=== PATIENT | male | born 1935 | race Caucasian/White ===

== ENCOUNTER 2017-04-13 15:29 | Emergency (ER) | payer MEDICARE ==
[2017-04-13 15:38] VITALS: BP 190/83; PULSE 85; RESP 18; TEMP 97.8
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
== END 2017-04-13 16:40 | disposition home or self-care (01) ==
LOC: EC 15:29
DX: S46.912A Strain of unspecified muscle, fascia and tendon at shoulder and upper arm level, left arm, initial encounter (principal); I10 Essential (primary) hypertension; E78.5 Hyperlipidemia, unspecified; Z96.612 Presence of left artificial shoulder joint; Z87.891 Personal history of nicotine dependence; Z79.899 Other long term (current) drug therapy; X50.1XXA Overexertion from prolonged static or awkward postures, initial encounter; Y93.89 Activity, other specified
CPT/HCPCS: 99283

== ENCOUNTER → 2017-10-07 | Outpatient (CLI) | payer MEDICARE ==
[2017-10-07 09:58] LABS: Basophils % (A) 1 %; CH 30.2; CHCM 31.9; Eosinophils # (A) 0.2 k/uL (0-0.7); Eosinophils % (A) 3 %; HCT 44.4 % (39.0-53.0); HDW 2.22; HGB 14.3 gm/dL (13.0-17.5); Luc # (Auto) 0.13; Luc % (Auto) 2; Lymphocytes # (A) 1.8 k/uL (1.0-4.8); Lymphocytes % (A) 24 %; MCH 30.7 pg (25.0-35.0); MCHC 32.2 g/dL (31.0-37.0); MCV 95.1 fL (80.0-100.0); Mean Platelet Volume 7.6; Monocytes # (A) 0.4 k/uL (0-1.0); Monocytes % (A) 6 %; Neutrophils # (A) 4.9 k/uL (1.3-7.7); Neutrophils % (A) 66 %; RBC 4.67 m/uL (4.30-5.90); WBC 7.4 k/uL (3.8-10.6); WBC (Perox) 7.34
[2017-10-07 10:14] LABS: Anion Gap 11 mmol/L; Blood Urea Nitrogen 27 mg/dL (9-20); Carbon Dioxide 28 mmol/L (22-30); Chloride 101 mmol/L (98-107); Glucose 109 mg/dL (74-99); Non-African American GFR(MDRD) 58 (>60 ml/min/1.73 sqM); Potassium 4.6 mmol/L (3.5-5.1); Sodium 140 mmol/L (137-145)
--- NOTE | 2017-10-07 17:40 | US ---
EXAMINATION TYPE: US kidneys/renal and bladder DATE OF EXAM: 10/07/2017 COMPARISON: NONE CLINICAL HISTORY: 81-year-old male N18.2 CHRONIC KIDNEY DISEASE. CKD stage II TECHNIQUE: Multiple sonographic images of the kidneys and bladder are obtained. FINDINGS: Right Kidney: 9.4 x 5.3 x 5.5 cm without hydronephrosis. Left Kidney: 10.8 x 6.0 x 4.7 cm without hydronephrosis. There is bilateral renal cortical thinning noted. No gross abnormality of the urine distended bladder though there is posterior impression on to the bl adder base from an enlarged prostate gland which measures 5.2 x 4.1 x 5.6cm. Neither ureteral jet is seen in the course of the exam. IMPRESSION: 1. Chronic medical renal disease. 2. No hydronephrosis. 3. Prostatomegaly with impression onto the posterior bladder base. Correlate for BPH.
[2017-10-08 13:43] LABS: Free Kappa Lt Chain Qnt, Serum 3.19 mg/dL (0.33-1.94)
[2017-10-08 14:19] LABS: C-ANCA <1:20 Titer (<1:20); P-ANCA <1:20 Titer (<1:20)
== END | disposition home or self-care (01) ==
LOC: RADUSWWP 09:14
PROVIDERS: ATTEND Internal Medicine
DX: N40.0 Benign prostatic hyperplasia without lower urinary tract symptoms (principal); N18.2 Chronic kidney disease, stage 2 (mild)
CPT/HCPCS: 36415; 76770; 80048; 82570; 83883; 84156; 84165; 84166; 85025; 86255

== ENCOUNTER → 2017-11-05 | Outpatient (CLI) | payer MEDICARE ==
--- NOTE | 2017-11-05 12:12 | XR ---
EXAMINATION TYPE: XR bone survey complete DATE OF EXAM: 11/05/2017 COMPARISON: NONE HISTORY: Monoclonal gammopathy Bony calvarium : 2 views of the bony calvarium demonstrate. No definitive focal lytic lesion. Spine: Two views of the cervical, thoracic and lumbar spines are submitted. There is marked disc spa ce narrowing C3-C4 and C5-C6 levels, ossific fusion C5-C6 level is felt present. There is moderate an terior spurring C4-C5 level. Frontal view shows uncovertebral facet arthropathy bilaterally. There is moderate to severe right-sided carotid bulb calcification. Consider carotid ultrasound follow-up. Thoracic spine shows fairly moderate to severe anterior and lateral spurring in the mid to lower thor acic spine. Some multilevel disc space narrowing is present. Lumbar spine shows moderate to severe multilevel spurring and disc space narrowing most prominent low er lumbar levels. Overlying vascular calcification is seen. No definitive lytic lesions are identifie d PELVIS: Single view of the pelvis demonstrates. Mild joint space loss in both hips is present. Jin ency from overlying bowel gas is noted making evaluation suboptimal. No definitive focal lytic lesion s are seen. UPPER EXTREMITIES: Two views of the upper extremities. Metallic hardware from bilateral shoulder reve rse arthroplasty is identified. No definitive lytic lesion. LOWER EXTREMITIES: 2 views of the lower extremities. No definitive focal lytic lesions CXR: There is left basilar linear scarring or atelectasis. No suspicious lytic or expansile rib lesio n identified. There is atherosclerotic and ectatic aorta noted IMPRESSION: No definitive suspicious focal lytic lesion seen. Consider carotid ultrasound follow-up.
== END | disposition home or self-care (01) ==
LOC: RADXRMAIN 11:05
PROVIDERS: ATTEND Internal Medicine Hematology & Oncology
DX: M12.9 Arthropathy, unspecified (principal); D47.2 Monoclonal gammopathy; I10 Essential (primary) hypertension; N42.9 Disorder of prostate, unspecified
CPT/HCPCS: 77075

== ENCOUNTER → 2018-03-28 | Outpatient (CLI) | payer MEDICARE ==
--- NOTE | 2018-03-28 15:58 | XR ---
EXAMINATION TYPE: XR KUB DATE OF EXAM: 03/28/2018 CLINICAL DATA: 82-year-old male with back pain, PHH COMPARISON: None FINDINGS: Lung bases are clear. No evidence for free intraperitoneal air. No dilated small bowel or air-fluid levels. Scattered air and stool seen throughout the colon extendi ng distally into the rectum. Mild to moderate stool burden. No suspicious calcifications identified. Phleboliths in the right hemipelvis. Degenerative changes lower lumbar spine. IMPRESSION: No evidence of bowel obstruction or free intraperitoneal air.
== END | disposition home or self-care (01) ==
LOC: RADXRMAIN 12:45
PROVIDERS: ATTEND Internal Medicine
DX: M54.9 Dorsalgia, unspecified (principal)
CPT/HCPCS: 74018

== ENCOUNTER → 2018-06-23 | Outpatient (CLI) | payer MEDICARE ==
--- NOTE | 2018-06-23 16:56 | XR ---
EXAMINATION TYPE: XR lumbar spine 2 or 3V DATE OF EXAM: 06/23/2018 COMPARISON: NONE HISTORY: Low back pain TECHNIQUE: 3 views FINDINGS: The lumbar vertebra have normal alignment. Posterior elements are intact. There is degenera tive disc space narrowing throughout the lumbar spine with spur formation. There is no compression fr acture. Abdominal aorta is atheromatous. IMPRESSION: Spondylotic changes. No fracture. Atherosclerotic vascular disease.
== END | disposition home or self-care (01) ==
LOC: RADXRMAIN 16:25
PROVIDERS: ATTEND Internal Medicine
DX: M47.816 Spondylosis without myelopathy or radiculopathy, lumbar region (principal)
CPT/HCPCS: 72100

== ENCOUNTER → 2019-02-20 | Outpatient (CLI) | payer MEDICARE ==
[2019-02-20 09:06] LABS: Basophils % (A) 0 %; Eosinophils # (A) 0.3 k/uL (0-0.7); Eosinophils % (A) 4 %; HCT 42.6 % (39.0-53.0); HGB 13.8 gm/dL (13.0-17.5); Lymphocytes % (A) 27 %; MCH 30.8 pg (25.0-35.0); MCHC 32.5 g/dL (31.0-37.0); MCV 94.7 fL (80.0-100.0); Mean Platelet Volume 7.1; Monocytes # (A) 0.4 k/uL (0-1.0); Monocytes % (A) 5 %; Neutrophils # (A) 4.5 k/uL (1.3-7.7); Neutrophils % (A) 61 %; Platelet Count 237 k/uL (150-450); RDW 14.2 % (11.5-15.5); WBC 7.3 k/uL (3.8-10.6)
[2019-02-20 17:11] LABS: Albumin 4.4 g/dL (3.80-4.90); Albumin/Globulin Ratio 1.52 (1.60-3.17); Anion Gap 7.9 mmol/L (4.00-12.00); Calcium 9.6 mg/dL (8.7-10.3); Carbon Dioxide 25.1 mmol/L (21.6-31.8); Globulin 2.9 g/dL (1.6-3.3); Magnesium 1.9 mg/dL (1.5-2.4); Potassium 5.3 mmol/L (3.5-5.5); Total Bilirubin 0.6 mg/dL (0.3-1.2); Total Protein 7.3 g/dL (6.2-8.2)
== END | disposition home or self-care (01) ==
LOC: LABWHC1 08:24
PROVIDERS: ATTEND Internal Medicine
DX: I10 Essential (primary) hypertension (principal)
CPT/HCPCS: 36415; 80053; 83735; 85025

== ENCOUNTER → 2019-05-18 | Outpatient (CLI) | payer MEDICARE ==
--- NOTE | 2019-05-18 13:56 | XR ---
EXAMINATION TYPE: XR lumbar spine 2 or 3V DATE OF EXAM: 05/18/2019 CLINICAL HISTORY: Chronic low back pain TECHNIQUE: Frontal and lateral images of the lumbar spine are obtained. COMPARISON: 06/23/2018 FINDINGS: There are 5 lumbar type vertebral bodies identified. The lumbar spine shows satisfactory alignment without evidence of acute fracture or dislocation. Vertebral body heights are maintained. M ultilevel degenerative disc disease is seen as intervertebral disc space narrowing, endplate sclerosi s, facet arthropathy, and bridging anterior osteophytes. This is most pronounced of the lower lumbar spine and has increased in severity slightly in comparison to the prior of 2017 as facet arthropathy appears more pronounced. Extensive atherosclerosis of the abdominal aorta is noted. Mild diffuse osse ous demineralization is seen. IMPRESSION: 1. No acute fracture or malalignment of the lumbar spine. 2. 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
== END | disposition home or self-care (01) ==
LOC: RADXRMAIN 10:57
PROVIDERS: ATTEND Internal Medicine
DX: M51.36 Other intervertebral disc degeneration, lumbar region (principal)
CPT/HCPCS: 72100

== ENCOUNTER 2019-06-25 05:54 | Inpatient (IN) | payer MEDICARE ==
[2019-06-25] MEDS ORDERED: SODIUM CHLORIDE 0.9% 500 ML 500 ML IV STA (06:13)
[2019-06-25] MEDS ORDERED: ASPIRIN 81 MG PO STA (06:13)
--- NOTE | 2019-06-25 06:20 | ED ---
General Adult HPI - General Source: patient, family, RN notes reviewed, old records reviewed Mode of arrival: ambulatory Limitations: no limitations <Devyn Morley - Last Filed: 06/25/19 07:25> <Violetta Zhao - Last Filed: 06/25/19 07:54> - General Chief complaint: Chest Pain Stated complaint: Chest Pain Time Seen by Provider: 06/25/19 06:03 - History of Present Illness Initial comments: 83-year-old male patient past medical history significant for hypertension, hyperlipidemia presents ED chief complaint of chest pain with associated shortness of breath. Patient reports that these episodes menses Malachi chest pain shortness of breath are short in duration lasting less than a minute. Patient reports approximately 3 episodes of chest pain per day for the last 4 days. Describes the pain as a dull pain in his left parasternal region. Patient denies any previous cardiac history. At time of evaluation patient is currently not experiencing any chest pain. Systemic: Pt denies fatigue, fever/chills, rash. Pt denies weakness, night sweats, weight loss. Neuro: Pt denies headache, visual disturbances, syncope or pre-syncope. HEENT: Pt denies ocular discharge or irritation, otalgia, rhinorrhea, pharyngitis or notable lymphadenopathy. Cardiopulmonary: Pt denies heart palpitations, dyspnea on exertion. Abdominal/GI: Pt denies abdominal pain, n/v/d. : Pt denies dysuria, burning w/ urination, frequency/urgency. Denies new onset urinary or bowel incontinence. MSK: Pt denies myalgia, loss of strength or function in extremities. Neuro: Pt denies new onset weakness, paresthesias. (Devyn Morley) - Related Data Home Medications Medication Instructions Recorded Confirmed Ascorbic Acid [Vitamin C] 500 mg PO DAILY 04/13/17 06/25/19 Cholecalciferol (Vitamin D3) 2,000 unit PO DAILY 04/13/17 06/25/19 [Vitamin D3] Glucosamine/Chondr [place]roy A Sod [Osteo 1 tab PO HS 04/13/17 06/25/19 Bi-Flex Caplet] Multivitamins, Thera [Multivitamin 1 tab PO DAILY 04/13/17 06/25/19 (formulary)] [place]-3S/Dha/Epa/Fish Oil [Fish 1 cap PO HS 04/13/17 06/25/19 Oil 1,200 mg Softgel] Pravastatin Sodium [Pravachol] 40 mg PO HS 04/13/17 06/25/19 Finasteride [Proscar] 5 mg PO DAILY 09/22/18 06/25/19 Ubidecarenone [Co Q-10] 100 mg PO HS 09/22/18 06/25/19 Lisinopril-Hctz 20-12.5 mg 1 tab PO DAILY 06/25/19 06/25/19 [Zestoretic 20-12.5] Allergies Allergy/AdvReac Type Severity Reaction Status Date / Time No Known Allergies Allergy Verified 06/25/19 07:26 Review of Systems ROS Other: All systems not noted in ROS Statement are negative. <Devyn Morley - Last Filed: 06/25/19 07:25> ROS Other: All systems not noted in ROS Statement are negative. <Violetta Zhao - Last Filed: 06/25/19 07:54> ROS Statement: Those systems with pertinent positive or pertinent negative responses have been documented in the HPI. Past Medical History Past Medical History: Hyperlipidemia, Hypertension, Osteoarthritis (OA) History of Any Multi-Drug Resistant Organisms: None Reported Past Surgical History: Appendectomy, Orthopedic Surgery, Tonsillectomy Additional Past Surgical History / Comment(s): left and right shoulder surgery Past Psychological History: No Psychological Hx Reported Smoking Status: Former smoker Past Alcohol Use History: Occasional Past Drug Use History: None Reported <Devyn Morley - Last Filed: 06/25/19 07:25> General Exam Limitations: no limitations <Devyn Morley - Last Filed: 06/25/19 07:25> - General Exam Comments Initial Comments: Constitutional: NAD, AOX3, Pt has pleasant affect. HEENT: NC/AT, trachea midline, neck supple, no lymphadenopathy. Posterior pharyn x non erythematous, without exudates. External ears appear normal, without discharge. Mucous membranes moist. Eyes PERRLA, EOM intact. There is no scleral icterus. No pallor noted. Cardiopulmonary: RRR, no murmurs, rubs or gallops, no JVD noted. Lungs CTAB in anterior and posterior vital. No peripheral edema. Abdominal exam: Abdomen soft and non-distended. Abdomen non-tender to palpation in all 4 quadrants. Bowel sounds active in LLQ. No hepatosplenomegaly. No ecchymosis Neuro: CN II-XII grossly intact. No nuchal rigidity. No raccon eyes, no villegas sign, no hemotympanum. No cervical spinal tenderness. MSK: No posterior calf tenderness bilaterally, homans sign negative bilaterally. Posterior tibialis and radial pulse +2 bilaterally. Sensation intact in upper and lower extremities. Full active ROM in upper and lower extremities, 5/5 stregnth. (Devyn Morley) Course Vital Signs 06/25/19 06/25/19 06/25/19 05:56 06:15 07:00 Temperature 97.6 F Pulse Rate 63 59 L 68 Respiratory 18 18 18 Rate Blood Pressure 146/81 145/87 156/91 O2 Sat by Pulse 100 98 98 Oximetry 06/25/19 06/25/19 07:26 07:30 Temperature Pulse Rate 74 67 Respiratory 18 18 Rate Blood Pressure 160/80 151/83 O2 Sat by Pulse 100 99 Oximetry Medical Decision Making - Lab Data Result diagrams: 06/25/19 06:17 06/25/19 06:17 - EKG Data -: EKG Interpreted by Tx <Devyn Morley - Last Filed: 06/25/19 07:25> - Lab Data Result diagrams: 06/25/19 06:17 06/25/19 06:17 <Violetta Zhao - Last Filed: 06/25/19 07:54> - Medical Decision Making 83-year-old male patient no prior cardiac history presents ED chief complaint of chest pain for the last 2 days. Upon arrival ED patient is chest pain free. Initial EKG nonischemic, laboratory investigations significant for troponin of 1.5, also d-dimer elevation. Cardiology Dr. Treadwell was contacted by attending physician Dr. Zhao at 0700. repeat EKG acute [place]. Patient initiated on low intensity heparin. lift slab operator was activiated by attending physician Dr. Zhao. (Devyn Morley) % Is on evaluated the patient. This is an 83-year-old male with history of hypertension hyperlipidemia stuttering chest pain for 2 days presenting to the emergency department this morning upon recommendation of his for evaluation of his chest pain. Upon evaluation the patient reports pains only a 2-3 in intensity. He has not taken anything for this. Initial EKG had some mild ST elevation in II, III, and F via however patient was chest pain-free there was some baseline artifact, labs were obtained patient was given aspirin due to not having active significant chest pain nitro was held. Troponin resulted elevated at 1.5 and cardiology was notified, repeat EKG was obtained. Repeat EKG no longer has the artifact and there is definitive and elevation to [address] depressions in aVL and leads V2 V3. This was discussed with cardiology given Romeo recommended activation of the Wall Insulation Sprayer. (Violetta Zhao) - Lab Data Lab Results 06/25/19 06/25/19 06/25/19 Range/Units 06:17 06:17 06:17 WBC 8.6 (3.8-10.6) k/uL RBC 4.35 (4.30-5.90) m/uL Hgb 13.4 (13.0-17.5) gm/dL Hct 41.2 (39.0-53.0) % MCV 94.6 (80.0-100.0) fL MCH 30.9 (25.0-35.0) pg MCHC 32.6 (31.0-37.0) g/dL RDW 14.9 (11.5-15.5) % Plt Count 260 (150-450) k/uL Neutrophils % 59 % Lymphocytes % 31 % Monocytes % 5 % Eosinophils % 3 % Basophils % 0 % Neutrophils # 5.0 (1.3-7.7) k/uL Lymphocytes # 2.6 (1.0-4.8) k/uL Monocytes # 0.5 (0-1.0) k/uL Eosinophils # 0.2 (0-0.7) k/uL Basophils # 0.0 (0-0.2) k/uL PT 9.4 (9.0-12.0) sec INR 0.9 (<1.2) APTT 23.4 (22.0-30.0) sec D-Dimer 1.51 H (<0.60) mg/L FEU Sodium 141 (137-145) mmol/L Potassium 4.9 (3.5-5.1) mmol/L Chloride 104 (98-107) mmol/L Carbon Dioxide 27 (22-30) mmol/L Anion Gap 10 mmol/L BUN 30 H (9-20) mg/dL Creatinine 1.29 H (0.66-1.25) mg/dL Est GFR (CKD-EPI)AfAm 59 (>60 ml/min/1.73 sqM) Est GFR (CKD-EPI)NonAf 51 (>60 ml/min/1.73 sqM) Glucose 96 (74-99) mg/dL Calcium 9.6 (8.4-10.2) mg/dL Magnesium 2.0 (1.6-2.3) mg/dL Total Bilirubin 0.6 (0.2-1.3) mg/dL AST 43 (17-59) U/L ALT 21 (21-72) U/L Alkaline Phosphatase 45 (38-126) U/L Troponin I (0.000-0.034) ng/mL NT-Pro-B Natriuret Pep pg/mL Total Protein 7.8 (6.3-8.2) g/dL Albumin 4.2 (3.5-5.0) g/dL 06/25/19 06/25/19 Range/Units 06:17 06:17 WBC (3.8-10.6) k/uL RBC (4.30-5.90) m/uL Hgb (13.0-17.5) gm/dL Hct (39.0-53.0) % MCV (80.0-100.0) fL MCH (25.0-35.0) pg MCHC (31.0-37.0) g/dL RDW (11.5-15.5) % Plt Count (150-450) k/uL Neutrophils % % Lymphocytes % % Monocytes % % Eosinophils % % Basophils % % Neutrophils # (1.3-7.7) k/uL Lymphocytes # (1.0-4.8) k/uL Monocytes # (0-1.0) k/uL Eosinophils # (0-0.7) k/uL Basophils # (0-0.2) k/uL PT (9.0-12.0) sec INR (<1.2) APTT (22.0-30.0) sec D-Dimer (<0.60) mg/L FEU Sodium (137-145) mmol/L Potassium (3.5-5.1) mmol/L Chloride (98-107) mmol/L Carbon Dioxide (22-30) mmol/L Anion Gap mmol/L BUN (9-20) mg/dL Creatinine (0.66-1.25) mg/dL Est GFR (CKD-EPI)AfAm (>60 ml/min/1.73 sqM) Est GFR (CKD-EPI)NonAf (>60 ml/min/1.73 sqM) Glucose (74-99) mg/dL Calcium (8.4-10.2) mg/dL Magnesium (1.6-2.3) mg/dL Total Bilirubin (0.2-1.3) mg/dL AST (17-59) U/L ALT (21-72) U/L Alkaline Phosphatase (38-126) U/L Troponin I 1.530 H* (0.000-0.034) ng/mL NT-Pro-B Natriuret Pep 1140 pg/mL Total Protein (6.3-8.2) g/dL Albumin (3.5-5.0) g/dL - EKG Data EKG Comments: 1) Ventricular rate 60, painful to 74, QRS 14, QT/QTC 390/390, sinus rhythm with first-degree AV block, inferior posterior infarct, age undetermined, abnormal EKG. 2) Ventricular rate 57, RI interval 284, QRS 14, QT/QTC 392/31. Sinus bradycardia with first-degree AV block, lateral infarct possibly acute, inferior infarct prosecute, acute STEMI. (Devyn Morley) Critical Care Time Critical Care Time: Yes Total Critical Care Time: 30 <Violetta Zhao - Last Filed: 06/25/19 07:54> Disposition Is patient prescribed a controlled substance at d/c from ED?: No <Devyn Morley - Last Filed: 06/25/19 07:25> <Violetta Zhao - Last Filed: 06/25/19 07:54> Clinical Impression: ST elevation myocardial infarction (STEMI) Disposition: ADMITTED IP TO THIS HOSP Condition: Critical
[2019-06-25 06:28] LABS: Basophils % (A) 0 %; Eosinophils # (A) 0.2 k/uL (0-0.7); Eosinophils % (A) 3 %; HCT 41.2 % (39.0-53.0); HGB 13.4 gm/dL (13.0-17.5); Lymphocytes # (A) 2.6 k/uL (1.0-4.8); Lymphocytes % (A) 31 %; MCH 30.9 pg (25.0-35.0); MCHC 32.6 g/dL (31.0-37.0); MCV 94.6 fL (80.0-100.0); Monocytes # (A) 0.5 k/uL (0-1.0); Monocytes % (A) 5 %; Neutrophils % (A) 59 %; Platelet Count 260 k/uL (150-450); RBC 4.35 m/uL (4.30-5.90); RDW 14.9 % (11.5-15.5); WBC 8.6 k/uL (3.8-10.6)
[2019-06-25 06:39] LABS: Albumin 4.2 g/dL (3.5-5.0); Calcium 9.6 mg/dL (8.4-10.2); Potassium 4.9 mmol/L (3.5-5.1); Total Bilirubin 0.6 mg/dL (0.2-1.3); Total Protein 7.8 g/dL (6.3-8.2)
[2019-06-25 06:43] LABS: INR 0.9 (<1.2); Partial Thromboplastin Time 23.4 sec (22.0-30.0); Prothrombin Time 9.4 sec (9.0-12.0)
[2019-06-25 06:45] LABS: D-Dimer 1.51 mg/L FEU (<0.60)
[2019-06-25] MEDS ORDERED: HEPARIN SODIUM,PORCINE 5,000 UNIT/ML 1 ML VIAL IV ONE (06:54)
[2019-06-25] MEDS ORDERED: HEPARIN SODIUM,PORCINE 5,000 UNIT/ML 1 ML VIAL IV PRN (06:54)
[2019-06-25] MEDS: HEPARIN SOD,PORK IN 0.45% NACL 25,000 UNIT in 0.45% NACL 1 250ML.BAG IV SCH (07:06)
[2019-06-25] MEDS ORDERED: ATORVASTATIN 80 MG TAB PO STA (07:16)
--- NOTE | 2019-06-25 07:16 | XR ---
EXAMINATION TYPE: XR chest 2V DATE OF EXAM: 06/25/2019 HISTORY: Chest Pain. REFERENCE: Previous study dated 09/22/2018. FINDINGS: Bilateral shoulder arthroplasties are in place. Heart size upper limits of normal. There is scarring in the left lung base. The lungs are otherwise c lear. Pleural spaces are clear. IMPRESSION: 1. BORDERLINE CARDIOMEGALY. 2. SCARRING VERSUS ATELECTASIS, LEFT LUNG BASE.
[2019-06-25] MEDS ORDERED: MIDAZOLAM PF (FBP) 2 MG/2 ML VIAL IV ONE (07:50)
[2019-06-25] MEDS ORDERED: LIDOCAINE 1% INJ 10MG/ML (20 ML MDV) ONE (07:54)
[2019-06-25] MEDS ORDERED: LIDOCAINE 1% INJ 10MG/ML (20 ML MDV) SQ ONE (07:56)
[2019-06-25] MEDS ORDERED: NITROGLYCERIN OINT 1 INCH/GM PACKET TOPICAL SCH (08:00)
[2019-06-25] MEDS ORDERED: IV FLUID CONTINUATION 1,000 ML IV ONE (08:01)
[2019-06-25] MEDS ORDERED: niCARdipine 25 MG/10 ML VIAL ONE (08:04)
[2019-06-25] MEDS ORDERED: BIVALIRUDIN BOLUS 250 MG/50 ML IV ONE (08:06)
[2019-06-25] MEDS ORDERED: CLOPIDOGREL 75 MG TAB PO ONE (08:06)
[2019-06-25] MEDS ORDERED: BIVALIRUDIN 250 MG in SODIUM CHLORIDE 0.9% 50 ML IV ONE ×2 (08:07→08:58)
[2019-06-25] MEDS ORDERED: CLOPIDOGREL 75 MG TAB ONE (08:08)
[2019-06-25] MEDS ORDERED: IOPAMIDOL-370 100ML BTL INJ ONE ×2 (08:43→08:49)
[2019-06-25] MEDS: NITROGLYCERIN 1000MCG/10ML SYRINGE INTRACORON ONE ×3 (08:47→09:07)
[2019-06-25] MEDS ORDERED: METOPROLOL SUCCINATE (ER) 25 MG TAB.ER.24H PO SCH (09:00)
--- NOTE | 2019-06-25 09:14 | P.CRDCN ---
History of Present Illness History of present illness: This is Dr. Seals dictating a consult on this patient The patient was interviewed and examined by me IMPRESSION / ASSESSMENT: Chest discomfort consistent with ACS with ST elevation in the inferior leads Symptoms began almost a week back, recurrent. Patient had repeated episodes but this morning at 5:15 AM the pain became intense and constant Q waves in the inferior leads Posterior extension of inferior wall IL Hypertension Acute myocardial infarction ST elevation, delayed presentation, troponin 1.5 upon admission NT proBNP 1140 PLAN: Statins aspirin heparin and urgent transfer to Detailed Discussion with the Patient and His Line Discussed with Dr. Faiban HURTADO For the last week or so the patient has been having repeated episodes of chest discomfort the last for a few minutes and then go away. He's had it at rest as well as during exertion. No other associated symptoms He mentioned it to several people who advised him to go to the hospital but he kept ignoring this This morning at 5:15 AM he had severe discomfort in the left pectoral area that went down his left shoulder and arm and was quite intense Hence he came to the hospital First ECG showed ST elevation in the inferior leads with ST depression in V1 and V2 He was pain-free by the second ECG showed even more prominent ST elevations History of hypertension NO KNOWN DRUG ALLERGIES No iodine ALLERGY Nondiabetic Takes Pravachol 40 mg by mouth daily ROS: No fever chills or rigors, no cough, phlegm or expectoration, no nausea, vomiting or diarrhea, no hematuria, dysuria, no musculoskeletal complaints, no strokes or seizures, no skin lesions. EXAMINATION: Blood pressure 145/87 mmHg pulse rate in the 50s afebrile Breath sounds are clear no rhonchi no crackles Normal heart sounds normal S1 normal S2 no murmurs or gallops or rub Abdomen soft nontender Extremities warm no edema REVIEW OF LABS, ECG & MEDICAL DATA Hemoglobin 13.4 Normal electrolytes BUN 30 creatinine 1.3 Troponin elevated 1.5 upon admission Past Medical History Past Medical History: Hyperlipidemia, Hypertension, Osteoarthritis (OA) History of Any Multi-Drug Resistant Organisms: None Reported Past Surgical History: Appendectomy, Orthopedic Surgery, Tonsillectomy Additional Past Surgical History / Comment(s): left and right shoulder surgery Past Psychological History: No Psychological Hx Reported Smoking Status: Former smoker Past Alcohol Use History: Occasional Past Drug Use History: None Reported Medications and Allergies Home Medications Medication Instructions Recorded Confirmed Type Ascorbic Acid [Vitamin C] 500 mg PO DAILY 04/13/17 06/25/19 History Cholecalciferol (Vitamin D3) 2,000 unit PO DAILY 04/13/17 06/25/19 History [Vitamin D3] Glucosamine/Chondr Monroy A Sod [Osteo 1 tab PO HS 04/13/17 06/25/19 History Bi-Flex Caplet] Multivitamins, Thera [Multivitamin 1 tab PO DAILY 04/13/17 06/25/19 History (formulary)] [place]-3S/Dha/Epa/Fish Oil [Fish 1 cap PO HS 04/13/17 06/25/19 History Oil 1,200 mg Softgel] Pravastatin Sodium [Pravachol] 40 mg PO HS 04/13/17 06/25/19 History Finasteride [Proscar] 5 mg PO DAILY 09/22/18 06/25/19 History Ubidecarenone [Co Q-10] 100 mg PO HS 09/22/18 06/25/19 History Lisinopril-Hctz 20-12.5 mg 1 tab PO DAILY 06/25/19 06/25/19 History [Zestoretic 20-12.5] Allergies Allergy/AdvReac Type Severity Reaction Status Date / Time No Known Allergies Allergy Verified 06/25/19 07:26 Physical Exam Vitals: Vital Signs Temp Pulse Resp BP Pulse Ox 06/25/19 08:02 97.9 F 06/25/19 07:30 67 18 151/83 99 06/25/19 07:26 74 18 160/80 100 06/25/19 07:00 68 18 156/91 98 06/25/19 06:15 59 L 18 145/87 98 06/25/19 05:56 97.6 F 63 18 146/81 100 Intake and Output 06/24/19 06/25/19 06/25/19 22:59 06:59 14:59 Intake Total 238.5 Balance 238.5 Intake: IV 238.5 Other: Weight 81.647 kg Results 06/25/19 06:17 06/25/19 06:17 Cardiac Enzymes 06/25/19 06/25/19 Range/Units 06:17 06:17 AST 43 (17-59) U/L Troponin I 1.530 H* (0.000-0.034) ng/mL Coagulation 08/18/19 Range/Units 06:17 PT 9.4 (9.0-12.0) sec APTT 23.4 (22.0-30.0) sec CBC 06/25/19 Range/Units 06:17 WBC 8.6 (3.8-10.6) k/uL RBC 4.35 (4.30-5.90) m/uL Hgb 13.4 (13.0-17.5) gm/dL Hct 41.2 (39.0-53.0) % Plt Count 260 (150-450) k/uL Comprehensive Metabolic Panel 06/25/19 Range/Units 06:17 Sodium 141 (137-145) mmol/L Potassium 4.9 (3.5-5.1) mmol/L Chloride 104 (98-107) mmol/L Carbon Dioxide 27 (22-30) mmol/L BUN 30 H (9-20) mg/dL Creatinine 1.29 H (0.66-1.25) mg/dL Glucose 96 (74-99) mg/dL Calcium 9.6 (8.4-10.2) mg/dL AST 43 (17-59) U/L ALT 21 (21-72) U/L Alkaline Phosphatase 45 (38-126) U/L Total Protein 7.8 (6.3-8.2) g/dL Albumin 4.2 (3.5-5.0) g/dL Current Medications Generic Name Dose Route Start Last Admin Trade Name Freq PRN Reason Stop Dose Admin Aspirin 325 mg 06/26/19 09:00 Aspirin PO DAILY [facility] Atorvastatin Calcium 40 mg 06/26/19 09:00 Lipitor PO DAILY [facility] Heparin Sodium (Porcine) 0 unit 06/25/19 06:54 Heparin IV PER PROTOCOL PRN Low PTT Protocol Heparin Sodium/Sodium Chloride 250 mls @ 9.798 mls/hr 06/25/19 07:00 06/25/19 07:06 25,000 unit/ Sodium Chloride IV 12 units/kg/hr .Q24H GIO 9.798 mls/hr Administration Protocol 12 UNITS/KG/HR Metoprolol Succinate 25 mg 06/25/19 09:00 Toprol Xl PO DAILY [facility] Nitroglycerin 1 inch 06/25/19 08:00 Nitro-Bid Oint TOPICAL Q6HR GIO Intake and Output 06/24/19 06/25/19 06/25/19 22:59 06:59 14:59 Intake Total 238.5 Balance 238.5 Intake: IV 238.5 Other: Weight 81.647 kg 06/25/19 06:17 06/25/19 06:17
[2019-06-25] MEDS ORDERED: RX INFO: IV CONTRAST WAS GIVEN 1 EACH MISC MISCELLANE PRN (09:31)
[2019-06-25] MEDS ORDERED: ATROPINE SULFATE 0.1 MG/ML 10ML SYRINGE IV PRN (09:31)
[2019-06-25] MEDS ORDERED: ZOLPIDEM 5 MG TAB PO PRN (09:31)
[2019-06-25] MEDS ORDERED: NITROGLYCERIN SL TABS 0.4 MG TAB SUBLINGUAL PRN (09:31)
[2019-06-25] MEDS ORDERED: MAG HYDROX/AL HYDROX/SIMETH 30 ML CUP PO PRN (09:31)
[2019-06-25 09:40] LABS: Glucose,Whole Blood 95 mg/dL (75-99)
[2019-06-25] MEDS ORDERED: SODIUM CHLORIDE 0.9% 1,000 ML IV SCH (09:45)
--- NOTE | 2019-06-25 10:16 | LTR ---
DATE OF SERVICE: June 25, [address] Asencio: Mr. Barnett presented to the emergency room at [facility] with chest discomfort and was diagnosed with acute inferior ST-elevation myocardial infarction. Dr. Seals seen the patient and recommended proceeding with a heart catheterization emergently. 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 He underwent successful stenting of the mid and proximal right coronary artery with an excellent angiographic results. I want to thank you for allowing us to participate in his care and please do not hesitate to call for question or concerns. Sincerely, MMODL / IJN: [id number] /
--- NOTE | 2019-06-25 10:29 | CC ---
CARDIAC CATHETERIZATION REPORT DATE OF SERVICE: June 25, 2019 PERFORMING PHYSICIAN: Clifford Peralta MD, side seam machine operator. PROCEDURE PERFORMED: 1. Selective right and left coronary angiogram. 2. Aspiration thrombectomy from the right coronary artery. 3. Successful stenting of the mid RCA using 3.5 x 15 mm Xience AMARJIT with an excellent angiographic results and reduction of stenosis from 100% to 0%. 4. Successful stenting of the proximal right coronary artery with excellent angiographic results as well. 5. Left heart catheterization. INDICATION: This is an 83-year-old gentleman with hypertension and dyslipidemia who presented to the emergency room complaining of chest discomfort. He was found to be in acute inferior ST-elevation myocardial infarction. The patient was seen and evaluated by Dr. Seals who recommended proceeding with an emergent heart catheterization. APPROACH: Right common femoral artery. COMPLICATION: None. LEVEL OF SEDATION: Moderate with sedation length of 82 minutes. Door to balloon is 135 minutes. PROCEDURE DESCRIPTION: After obtaining an informed consent, the patient was brought to the cardiac [employer]. The right common femoral artery was cannulated using micropuncture technique. The right common femoral artery using was cannulated using an 18-gauge Cook needle, then I placed a 6-Malagasy sheath. After that I did selective right and left coronary angiogram. Selective right coronary angiogram was performed using JR4 catheter. Selective left coronary angiogram was performed using the JL4 catheter. Left heart catheterization was performed using 6- Malagasy pigtail catheter. After that I did intervene on the right coronary artery. Please see a separate paragraph for that. SELECTIVE CORONARY ANGIOGRAM: 1. The right coronary artery is a large caliber vessel and it is a superdominant vessel. The proximal right coronary artery appeared to have mild disease only. The mid RCA has eccentric, calcified, and 100% lesion. The RCA distally has mild to moderate diffuse disease. Bifurcates into PDA and PLV branches. Both appeared to have mild to moderate diffuse disease only. 2. The left main is angiographically normal. Bifurcates into a nondominant left circumflex and left anterior descending artery. 3. The left circumflex is a medium caliber vessel. It is a nondominant vessel. The left circumflex in the proximal portion gives rise into a large first OM branch which seems to be angiographically normal and the circumflex continued after that as a small-caliber vessel in the AV groove. 4. The LAD: The LAD proximally appeared to have mild disease only. The mid LAD appeared to be angiographically normal. The LAD distally appeared to be normal as well and becomes small to medium caliber vessel. The LAD gives rise into multiple diagonal branches. They all appeared to be angiographically normal. PCI OF THE RIGHT CORONARY ARTERY: Anticoagulation was initiated using Angiomax. Subsequently I did engage the right coronary artery using JR4 guide. The guide was seating very well in the ostial right coronary artery. I did wire the RCA using a run-through wire. The wire was positioned in the PLV branch of the right coronary artery. After that, I did balloon angioplasty using 3.0 x 12 mm balloon. The balloon opened very well in the mid right coronary artery. Subsequently I attempted advancing 3 5 x 15 mm stent but the stent will not cross the junction between the proximal and mid right coronary artery. At that point, I decided to balloon the right coronary artery using 3.5 mm NC balloon. With that, I was unable to advance the stent to the mid right coronary artery. At that point, I decided to double wire the RCA where I placed a lm wire with a whisper wire. In spite of that, I was unable to advance the stent to the mid right coronary artery from the proximal portion where the stent was stuck in the junction between proximal to mid right coronary artery which was an angulated area. At that point, I decided to use a GuideLiner. I pulled the lm wire which was a whisper wire outside the right coronary artery and I attempted advancing GuideLiner to the proximal right coronary artery and in spite of that I was unable to advance the stent to the mid RCA. At that point, I decided to use lm wire, but this time using the Ironman. I advanced the Ironman to the distal right coronary artery where the Ironman was positioned in the PLV branch of the right coronary artery. I attempted advancing the stent again over the Whisper wire, but the stent will not cross and over the Ironman and the stent will not cross again. At that point, I decided to go ahead and balloon the RCA again using 3.5 x 12 mm NC balloon. I advanced a 3.5 x 12 mm NC balloon to the junction between proximal to mid RCA where I did balloon angioplasty and the balloon was inflated under 18 atmospheres for 20 seconds and the lesion was quite compliant and the balloon was opened up very well. Then I did balloon angioplasty to the mid RCA. After that I was able to advance the stent to the mid RCA over the whisper wire. The stent was positioned under fluoroscopy guidance and deployed after I pulled the Ironman out. The stent was deployed under 16 atmospheres for 20 seconds. The following angiogram showed what seems to be possible dissection/thrombus in the proximal to mid right coronary artery. At that point, I decided not to leave that again alone and I decided to cover that with a stent. So I did wire the RCA again using a whisper wire. After that, I did deploy a 3.5 x 15 mm in the proximal RCA with about 1 mm junction between right coronary stent. Then I did balloon the area of overlap between the 2 stents using the 3.5 mm new NC balloon. The following angiogram showed great angiographic results and the procedure was completed without any complication. CONCLUSION: 1. Acute inferior ST-elevation myocardial infarction. 2. 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 3. Successful stenting of both the mid and proximal right coronary artery using 3.5 x 15 mm stents with an excellent angiographic results and reduction of stenosis from 100% to 0%. POSTPROCEDURE MANAGEMENT: 1. Dual anti-platelet therapy. 2. Risk factors modifications. 3. Follow up with the patient. MMODL / IJN: [id number] /
--- NOTE | 2019-06-25 11:26 | P.HPIM ---
History of Present Illness H&P Date: 06/25/19 Chief Complaint: chest pain This is 83 years old male who presented to the emergency department with new onset chest pain. Patient stated for the last 5 days prior to presentation he has been experiencing occasional chest pain located to the left sided of the chest without radiation without nausea vomiting or diaphoresis stated that the pain would happen at rest [id number] in severity without significant radiation and that resolved on its own the patient that this morning developed a worsening in his chest pain where he felt it's more tight to describe that some body sitting in his chest without significant radiation and that decided to come into the emergency department where his troponin was high at 1.5 EKG showed inferior ischemia with the ST elevation MT cardiac catheterization was done momentarily with the 2 stents to the RCA with great results. Patient currently is in the intensive care unit seems to be alert and oriented 4 denying chest pain shortness breath nausea vomiting abdominal pain dizziness lightheadedness or blurry vision. Patient stated that he quit taking aspirin long time ago as he was having chronic kidney disease and his primary stopped at a long time ago stated that he still taking his cholesterol medicine and other medication on regular basis and was seen by his primary care physician few weeks prior to this presentation. Patient the is denying tobacco alcohol or drug abuse and said that he quit cigarettes 40 years ago. Patient is retired from [employer]. Review of Systems All 14 systems reviewed and negative except as above Past Medical History Past Medical History: Hyperlipidemia, Hypertension, Osteoarthritis (OA) Last Myocardial Infarction Date:: 06/25/2019 History of Any Multi-Drug Resistant Organisms: None Reported Past Surgical History: Appendectomy, Orthopedic Surgery, Tonsillectomy Additional Past Surgical History / Comment(s): left and right shoulder surgery Date of Last Stent Placement:: 06/25/2019 Past Psychological History: No Psychological Hx Reported Smoking Status: Former smoker Past Alcohol Use History: Occasional Past Drug Use History: None Reported Medications and Allergies Home Medications Medication Instructions Recorded Confirmed Type Ascorbic Acid [Vitamin C] 500 mg PO DAILY 04/13/17 06/25/19 History Cholecalciferol (Vitamin D3) 2,000 unit PO DAILY 04/13/17 06/25/19 History [Vitamin D3] Glucosamine/Chondr Monroy A Sod [Osteo 1 tab PO HS 04/13/17 06/25/19 History Bi-Flex Caplet] Multivitamins, Thera [Multivitamin 1 tab PO DAILY 04/13/17 06/25/19 History (formulary)] [place]-3S/Dha/Epa/Fish Oil [Fish 1 cap PO HS 04/13/17 06/25/19 History Oil 1,200 mg Softgel] Pravastatin Sodium [Pravachol] 40 mg PO HS 04/13/17 06/25/19 History Finasteride [Proscar] 5 mg PO DAILY 09/22/18 06/25/19 History Ubidecarenone [Co Q-10] 100 mg PO HS 09/22/18 06/25/19 History Lisinopril-Hctz 20-12.5 mg 1 tab PO DAILY 06/25/19 06/25/19 History [Zestoretic 20-12.5] Allergies Allergy/AdvReac Type Severity Reaction Status Date / Time No Known Allergies Allergy Verified 06/25/19 07:26 Physical Exam Vitals: Vital Signs Temp Pulse Resp BP Pulse Ox 06/25/19 10:15 65 23 121/65 96 06/25/19 10:00 98.9 F 64 10 L 116/71 97 06/25/19 09:45 59 L 8 L 116/71 98 06/25/19 09:38 61 7 L 06/25/19 08:02 97.9 F 06/25/19 07:30 67 18 146/88 99 06/25/19 07:26 74 18 160/80 100 06/25/19 07:15 153/124 06/25/19 07:00 68 18 156/91 98 06/25/19 06:15 59 L 18 145/87 98 06/25/19 05:56 97.6 F 63 18 146/81 100 Intake and Output 06/24/19 06/25/19 06/25/19 22:59 06:59 14:59 Intake Total 438.5 Output Total 400 Balance 38.5 Intake: IV 238.5 Intake, IV Titration 200 Amount Bivalirudin 250 mg In 50 Sodium Chloride 0.9% 50 ml @ 0 mls/hr IV .[facility] Rx#:[id number] Sodium Chloride 0.9% 1, 150 000 ml @ 75 mls/hr IV . [id number] [facility] Rx#:[id number] Output: Urine 400 Other: Weight 81.647 kg Gen.: in stated age, no acute distress Heart: Normal S1-S2 Lungs: Clear to auscultation bilaterally Abdomen: Soft, no tenderness, positive bowel sounds in all 4 quadrant no guarding or rebound Skin: No new rash Psych: Alert and oriented 3 Neuro: No focal deficit Results CBC & Chem 7: 06/25/19 06:17 06/25/19 06:17 Labs: Abnormal Lab Results - Last 24 Hours (Table) 06/25/19 06/25/19 06/25/19 Range/Units 06:17 06:17 06:17 D-Dimer 1.51 H (<0.60) mg/L FEU BUN 30 H (9-20) mg/dL Creatinine 1.29 H (0.66-1.25) mg/dL Troponin I 1.530 H* (0.000-0.034) ng/mL Thrombosis Risk Factor Assmnt - Choose All That Apply Any of the Below Risk Factors Present?: Yes Each Factor Represents 1 point: Acute MT Each Risk Factor Represents 2 Points: Patient confined to bed Each Risk Factor Represents 3 Points: Age 75 years or older Other congenital or acquired thrombophilia - If yes, enter type in comment: No Thrombosis Risk Factor Assessment Total Risk Factor Score: 6 Thrombosis Risk Factor Assessment Level: High Risk Assessment and Plan Assessment: 1. ST elevation MT status post cardiac catheterization with 2 drug-eluting stent to the RCA. 2. Chest pain, resolved. 3. Hypertension. 4. Hyperlipidemia. 5. Chronic kidney disease stage III. 6. Benign prostatic hypertrophy. 7. Generalized osteoarthritis. Patient currently on Dual antiplatelets therapy, continue cardioprotective medication, continue close monitoring vital signs and repeat blood work in the morning in the intensive care unit setting, follow-up with cardiology recommendation regarding discharge planning, resume home medication, counseled patient regarding medication adherence specially Plavix and close follow-up with his primary care physician. Discharge planning based on clinical progress
[2019-06-25] MEDS: LISINOPRIL-HCTZ 10-12.5 MG 1 EACH TAB PO SCH (12:16)
--- NOTE | 2019-06-25 14:58 | ECHOF ---
Referral Reason:stemi MEASUREMENTS -------- HEIGHT: 180.3 cm WEIGHT: 81.6 kg BP: IVSd: 1.0 cm (0.6 - 1.1) LVIDd: 4.4 cm (3.9 - 5.3) LVPWd: 1.3 cm (0.6 - 1.1) IVSs: 1.6 cm LVIDs: 1.9 cm LVPWs: 2.0 cm Ao Diam: 3.8 cm (2.0 - 3.7) LA Diam: 3.3 cm (2.7 - 3.8) AV Cusp: 2.3 cm (1.5 - 2.6) EPSS: 1.5 cm MV E Alfonso: 0.79 m/s MV DecT: 196 ms MV A Alfonso: 0.92 m/s MV E/A Ratio: 0.86 RAP: 5.00 mmHg RVSP: 8.92 mmHg MV EF SLOPE: 83.75 mm/s (70 - 150) MV EXCURSION: 14.01 mm (> 18.000) FINDINGS -------- Sinus rhythm. This was a technically difficult study with suboptimal views. The left ventricular size is normal. There is borderline concentric left ventricular hypertrophy. Overall left ventricular systolic function is moderately impaired with, an EF between 35 - 40 %. I nferiorlateral aKINESIS The right ventricle is normal in size. The left atrial size is normal. The right atrial size is normal. The aortic valve is trileaflet and appears structurally normal. The mitral valve is normal. There is trace mitral regurgitation. The tricuspid valve appears structurally normal. Trace tricuspid regurgitation present. Right keturah tricular systolic pressure is normal at < 35 mmHg. There is no pulmonic regurgitation present. 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 There is no pericardial effusion. 5.0mg of Lumason was utilized for enhancement of images CONCLUSIONS -------- 1. Sinus rhythm. 2. This was a technically difficult study with suboptimal views. 3. The left ventricular size is normal. 4. There is borderline concentric left ventricular hypertrophy. 5. Overall left ventricular systolic function is moderately impaired with, an EF between 35 - 40 %. 6. The right ventricle is normal in size. 7. The left atrial size is normal. 8. The right atrial size is normal. 9. 5.0mg of Lumason was utilized for enhancement of images 10. The aortic valve is trileaflet and appears structurally normal. 11. The mitral valve is normal. 12. There is trace mitral regurgitation. 13. The tricuspid valve appears structurally normal. 14. Trace tricuspid regurgitation present. 15. Right ventricular systolic pressure is normal at < 35 mmHg. 16. There is no pulmonic regurgitation present. 17. 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 IVC Not well visulized. 19. There is no pericardial effusion. CAFETERIA ATTENDANT: Dominga Coreas RDCS
[2019-06-26 06:54] LABS: Basophils % (A) 0 %; Eosinophils # (A) 0.1 k/uL (0-0.7); Eosinophils % (A) 2 %; HCT 37.3 % (39.0-53.0); HGB 12.1 gm/dL (13.0-17.5); Lymphocytes # (A) 1.5 k/uL (1.0-4.8); Lymphocytes % (A) 22 %; MCH 31.4 pg (25.0-35.0); MCHC 32.3 g/dL (31.0-37.0); MCV 97.2 fL (80.0-100.0); Mean Platelet Volume 6.9; Monocytes # (A) 0.5 k/uL (0-1.0); Monocytes % (A) 7 %; Neutrophils # (A) 4.5 k/uL (1.3-7.7); Neutrophils % (A) 66 %; Platelet Count 194 k/uL (150-450); RBC 3.84 m/uL (4.30-5.90); WBC 6.8 k/uL (3.8-10.6)
[2019-06-26] MEDS: HEPARIN SOD,PORK IN 0.45% NACL 25,000 UNIT in 0.45% NACL 1 250ML.BAG IV SCH (07:40)
--- NOTE | 2019-06-26 08:03 | PN ---
PROGRESS NOTE Mr. Salter is an 83-year-old male with no prior history of coronary artery disease who presented with an acute inferoposterior myocardial infarction, underwent cardiac catheterization and stenting of the RCA by Dr. Peralta. He is doing well this morning. Feels that he is ready to go home. He is denying any chest pain. No dizziness. No palpitation. He denies any nausea. He continues to be at this time on aspirin once a day, Lipitor 40 mg daily, Plavix 75 mg daily, lisinopril HCT 10-12.5 mg daily and metoprolol succinate 50 mg daily. PHYSICAL EXAMINATION: Blood pressure 120/70 with the heart rate in the 60s. LUNGS: Clear. HEART: Regular rate and rhythm. S1, S2. No S3. No rub. ABDOMEN: Soft, nontender. Positive bowel sounds. No organomegaly. EXTREMITIES: No edema. Right groin hematoma. LAB DATA: Lab data revealed a peak troponin of 94 with a cholesterol 132, LDL of 67. BUN and creatinine of .Hemoglobin of 12.1. IMPRESSION: 1. Status post stenting of the right coronary artery in the setting of myocardial infarction. 2. History of hypertension. 3. History of hyperlipidemia. RECOMMENDATION: We will continue present therapy. Patient had evidence of ischemic cardiomyopathy on his echocardiography. I will increase his activity. If he is stable, he should be able to be transferred to telemetry floor today and depending on his progress, further recommendation will be made. MMODL / IJN: [id number] /
[2019-06-26] MEDS: CLOPIDOGREL 75 MG TAB PO SCH (08:10)
[2019-06-26] MEDS: ATORVASTATIN 40 MG TAB PO SCH (08:10)
[2019-06-26] MEDS: ASPIRIN 81 MG PO SCH (08:10)
[2019-06-26] MEDS: METOPROLOL SUCCINATE (ER) 50 MG TAB.ER.24H PO SCH (08:11)
[2019-06-26] MEDS ORDERED: ASPIRIN 325 MG TAB PO SCH (09:00)
[2019-06-26 09:07] LABS: Calcium 9.1 mg/dL (8.4-10.2); Potassium 4.5 mmol/L (3.5-5.1)
[2019-06-26 10:00] VITALS: BMI 26.9
[2019-06-26 11:26] LABS: Hemoglobin A1C 6.2 % (4.0-6.0)
[2019-06-26] MEDS: LISINOPRIL-HCTZ 10-12.5 MG 1 EACH TAB PO SCH (12:36)
--- NOTE | 2019-06-26 15:58 | P.PN ---
Subjective Progress Note Date: 06/26/19 This is a 3-year-old male patient of Dr. Asencio who presented to the emergency department with new onset chest pain. Patient stated for the last 5 days prior to presentation he has been experiencing occasional chest pain located to the left sided of the chest without radiation without nausea vomiting or diaphoresis stated that the pain would happen at rest [id number] in severity without significant radiation and that resolved on its own the patient that this morning developed a worsening in his chest pain where he felt it's more tight to describe that somebody sitting in his chest without significant radiation and that decided to come into the emergency department where his troponin was high at 1.5 EKG showed inferior ischemia with the ST elevation PR cardiac catheterization was done momentarily with the 2 stents to the RCA with great results. Patient currently is in the intensive care unit seems to be alert and oriented 4 denying chest pain shortness breath nausea vomiting abdominal pain dizziness lightheadedness or blurry vision. Patient stated that he quit taking aspirin long time ago as he was having chronic kidney disease and his primary stopped at a long time ago stated that he still taking his cholesterol medicine and other medication on regular basis and was seen by his primary care physician few weeks prior to this presentation. Patient the is denying tobacco alcohol or drug abuse and said that he quit cigarettes 40 years ago. Patient is retired from [employer]. 06/26: Patient is currently seen in the intensive care unit. Patient is denying any chest pain, dizziness, palpitations. No nausea. He is hemodynamically stable. Blood pressure 121/72, heart rate 64, pulse ox 95% on room air, afebrile. Echocardiogram reveals EF 35-40% with borderline concentric left ventricle hypertrophy, trace mitral regurgitation, trace tricuspid regurgitation. Patient has been transferred to the cardiac stepdown unit. Objective - Vital Signs Vital signs: Vital Signs Temp 97.6 F 06/26/19 04:00 Pulse 64 06/26/19 07:00 Resp 12 06/26/19 07:49 BP 121/72 06/26/19 07:00 Pulse Ox 95 06/26/19 07:00 Intake & Output 06/25/19 06/26/19 06/26/19 18:59 06:59 18:59 Intake Total 2018.5 825 75 Output Total 700 1500 Balance 1318.5 -675 75 Weight 85.2 kg Intake: IV 238.5 Intake, IV Titration 800 825 75 Amount Bivalirudin 250 mg In 50 Sodium Chloride 0.9% 50 ml @ 0 mls/hr [id number] Sodium Chloride 0.9% 1, 750 825 75 000 ml @ 75 mls/hr IV . [id number] [facility] Rx#:[id number] Oral 980 Output: Urine 700 1500 - Exam Review Of Systems: Constitutional: No fever, no chills, no night sweats. No weight change. No weakness, fatigue or lethargy. No daytime sleepiness. EENT: No headache. No blurred vision or double vision, no loss of vision. No loss of Hearing, no ringing in the ears, no dizziness. No nasal drainage or con gestion. No epistaxis. No sore throat. Lungs: No shortness of breath, cough, no sputum production. No wheezing. Cardiovascular: No chest pain, no lower extremity edema. No palpitations. No paroxysmal nocturnal dyspnea. No orthopnea. No lightheadedness or dizziness. No syncopal episodes. Abdominal: No abdominal pain. No nausea, vomiting. No diarrhea. No constipation. No bloody or tarry stools.. No loss of appetite. Genitourinary: No dysuria, increased frequency, urgency. No urinary retention. Musculoskeletal: No myalgias. No muscle weakness, no gait dysfunction, no frequent falls. No back pain. No neck pain. Integumentary: No wounds, no lesions. No rash or pruritus. No unusual bruising. No change in hair or nails. Neurologic: No aphasia. No facial droop. No change in mentation. No head injury. No headache. No paralysis. No paresthesia. Psychiatric: No depression. No anxiety. No mood swings. Endocrine: No abnormal blood sugars. No weight change. No excessive sweating or thirst. No cold intolerance. Gen: This is an 83-year-old male. Patient is resting in a recliner and appears to be comfortable and in no acute distress. HEENT: Head is atraumatic, normocephalic. Pupils equal, round. Sclerae is anicteric. NECK: Supple. No JVD. No lymphadenopathy. No thyromegaly. LUNGS: Clear to auscultation. No wheezes or rhonchi. No intercostal retraction s. HEART: Regular rate and rhythm. No murmur. ABDOMEN: Soft. Bowel sounds are present. No masses. No tenderness. EXTREMITIES: No pedal edema. No calf tenderness. Dorsalis pedis +2 bilaterally. NEUROLOGICAL: Patient is awake, alert and oriented x3. Cranial nerves 2 through 12 are grossly intact. - Labs CBC & Chem 7: 06/26/19 05:57 06/26/19 05:57 Labs: Abnormal Lab Results - Last 24 Hours (Table) 06/25/19 06/25/19 06/25/19 Range/Units 12:43 12:43 17:39 RBC (4.30-5.90) m/uL Hgb (13.0-17.5) gm/dL Hct (39.0-53.0) % APTT 47.2 H (22.0-30.0) sec Troponin I 59.600 H* 94.300 H* (0.000-0.034) ng/mL 06/26/19 Range/Units 05:57 RBC 3.84 L (4.30-5.90) m/uL Hgb 12.1 L (13.0-17.5) gm/dL Hct 37.3 L (39.0-53.0) % APTT (22.0-30.0) sec Troponin I (0.000-0.034) ng/mL Assessment and Plan Plan: 1. Acute inferior wall ST elevated myocardial infarction status post stenting of the mid RCA and proximal RCA, aspiration thrombectomy from the right RCA. Continue aspirin 81 mg daily, Lipitor 40 mg daily, Plavix 75 mg daily, Toprol-XL 50 mg daily. 2. Hypertension. Continue Zestoretic daily and Toprol-XL. 3. Hyperlipidemia. Atorvastatin. 4. Chronic kidney disease stage III. 5. Benign prostatic hypertrophy. 6. Generalized osteoarthritis. Discharge plan: Return home in the next 24-48 hours. Impression and plan of care have been directed as dictated by the signing physician. Hanna Campa nurse practitioner acting as scribe for signing physician.
[2019-06-27 06:12] LABS: Basophils % (A) 0 %; Eosinophils # (A) 0.2 k/uL (0-0.7); Eosinophils % (A) 2 %; HCT 39.5 % (39.0-53.0); HGB 12.6 gm/dL (13.0-17.5); Lymphocytes # (A) 1.6 k/uL (1.0-4.8); Lymphocytes % (A) 21 %; MCH 30.6 pg (25.0-35.0); MCHC 31.8 g/dL (31.0-37.0); MCV 96.1 fL (80.0-100.0); Mean Platelet Volume 7.1; Monocytes # (A) 0.5 k/uL (0-1.0); Monocytes % (A) 6 %; Neutrophils # (A) 5.2 k/uL (1.3-7.7); Neutrophils % (A) 68 %; Platelet Count 233 k/uL (150-450); RBC 4.11 m/uL (4.30-5.90); RDW 15.1 % (11.5-15.5); WBC 7.7 k/uL (3.8-10.6)
[2019-06-27 06:43] VITALS: RESP 16
[2019-06-27 07:38] VITALS: TEMP 98.2
[2019-06-27] MEDS: CLOPIDOGREL 75 MG TAB PO SCH (08:33)
[2019-06-27] MEDS: ASPIRIN 81 MG PO SCH (08:33)
[2019-06-27] MEDS: LISINOPRIL-HCTZ 10-12.5 MG 1 EACH TAB PO SCH (08:33)
[2019-06-27] MEDS: ATORVASTATIN 40 MG TAB PO SCH (08:33)
[2019-06-27] MEDS: METOPROLOL SUCCINATE (ER) 50 MG TAB.ER.24H PO SCH (08:33)
--- NOTE | 2019-06-27 09:14 | PN ---
PROGRESS NOTE Mr. Salter is an 83-year-old male who presented with an acute inferior myocardial infarction, underwent cardiac catheterization and stenting of the right coronary artery. He is doing well this morning, ambulating without difficulty. Denying any symptoms of chest pain. Denies any dizziness or palpitation. Denies any nausea. He is in sinus mechanism. He continued to be on aspirin once a day, Lipitor 40 mg daily, Plavix 75 mg daily, lisinopril HCT 10/12.5 mg daily, metoprolol succinate 50 mg daily. PHYSICAL EXAMINATION: Blood pressure 116/50 with the heart rate in the 60s. LUNGS: Clear. HEART: Regular rate and rhythm. S1, S2. No S3. No rub. ABDOMEN: Soft, nontender. EXTREMITIES: No edema. LAB DATA: Lab data revealed hemoglobin 12.6. IMPRESSION: 1. Status post inferior myocardial infarction with stenting of the RCA. 2. Ischemic cardiomyopathy, stable. 3. History of hypertension. 4. Hyperlipidemia. RECOMMENDATION: Patient should be able to be discharged home today and followed as an outpatient with Dr. Seals next week. MMODL / IJN: [id number] /
[2019-06-27 12:09] VITALS: BP 112/58; PULSE 65
--- NOTE | 2019-06-27 15:37 | P.DS ---
Providers Date of admission: 06/25/19 06:59 Expected date of discharge: 06/27/19 Attending physician: Eduardo Shipman Consults: 06/25/19 06:59 Consult Physician Urgent Consulting Provider: Smith Seals Consult Reason/Comments: NSTEMI Do you want consulting provider notified?: Already Contacted 06/25/19 09:31 Consult Physician Routine Consulting Provider: [facility] Consult Reason/Comments: Post Interventional patient Do you want consulting provider notified?: Already Contacted Primary care physician: Felicita Asencio [place] [facility] Course: This is a 3-year-old male patient of Dr. Asencio who presented to the emergency department with new onset chest pain. Patient stated for the last 5 days prior to presentation he has been experiencing occasional chest pain located to the left sided of the chest without radiation without nausea vomiting or diaphoresis stated that the pain would happen at rest [id number] in severity without significant radiation and that resolved on its own the patient that this morning developed a worsening in his chest pain where he felt it's more tight to describe that somebody sitting in his chest without significant radiation and that decided to come into the emergency department where his troponin was high at 1.5 EKG showed inferior ischemia with the ST elevation CA cardiac catheterization was done momentarily with the 2 stents to the RCA with great results. Patient currently is in the intensive care unit seems to be alert and oriented 4 denying chest pain shortness breath nausea vomiting abdominal pain dizziness lightheadedness or blurry vision. Patient stated that he quit taking aspirin long time ago as he was having chronic kidney disease and his primary stopped at a long time ago stated that he still taking his cholesterol medicine and other medication on regular basis and was seen by his primary care physician few weeks prior to this presentation. Patient the is denying tobacco alcohol or drug abuse and said that he quit cigarettes 40 years ago. Patient is retired from [employer]. 06/26: Patient is currently seen in the intensive care unit. Patient is denying any chest pain, dizziness, palpitations. No nausea. He is hemodynamically stable. Blood pressure 121/72, heart rate 64, pulse ox 95% on room air, afebrile. Echocardiogram reveals EF 35-40% with borderline concentric left ventricle hypertrophy, trace mitral regurgitation, trace tricuspid regurgitation. Patient has been transferred to the cardiac stepdown unit. 06/27: Patient denies having any discomfort, chest pain, lightheadedness, dizziness, shortness of breath, palpitations. Patient has been seen by Dr. Shah and cleared for discharge home. Discharge diagnoses: 1. Acute inferior wall ST elevated myocardial infarction status post stenting of the mid RCA and proximal RCA, aspiration thrombectomy from the right RCA. 2. Hypertension. 3. Hyperlipidemia. 4. Chronic kidney disease stage III. 5. Benign prostatic hypertrophy. 6. Generalized osteoarthritis. Discharge plan: home Impression and plan of care have been directed as dictated by the signing physician. Hanna Campa nurse practitioner acting as scribe for signing physician. Patient Condition at Discharge: Good Plan - Discharge Summary Discharge Rx Participant: No New Discharge Prescriptions: New Aspirin 81 mg PO DAILY #30 chew Atorvastatin [Lipitor] 40 mg PO DAILY #30 tab Nitroglycerin Sl Tabs [Nitrostat] 0.4 mg SUBLINGUAL Q5M PRN #25 tab PRN Reason: Chest Pain Clopidogrel [Plavix] 75 mg PO DAILY #30 tab Metoprolol Succinate (ER) [Toprol XL] 50 mg PO DAILY #30 tab.er.24h Continue Glucosamine/Chondr [place] A Sod [Osteo Bi-Flex Caplet] 1 tab PO HS [place]-3S/Dha/Epa/Fish Oil [Fish Oil 1,200 mg Softgel] 1 cap PO HS Multivitamins, Thera [Multivitamin (formulary)] 1 tab PO DAILY Cholecalciferol (Vitamin D3) [Vitamin D3] 2,000 unit PO DAILY Ascorbic Acid [Vitamin C] 500 mg PO DAILY Finasteride [Proscar] 5 mg PO DAILY Ubidecarenone [Co Q-10] 100 mg PO HS Lisinopril-Hctz 20-12.5 mg [Zestoretic 20-12.5] 1 tab PO DAILY Discontinued Pravastatin Sodium [Pravachol] 40 mg PO HS Discharge Medication List Ascorbic Acid [Vitamin C] 500 mg PO DAILY 04/13/17 [History] Cholecalciferol (Vitamin D3) [Vitamin D3] 2,000 unit PO DAILY 04/13/17 [History] Glucosamine/Chondr Monroy A Sod [Osteo Bi-Flex Caplet] 1 tab PO HS 04/13/17 [History] Multivitamins, Thera [Multivitamin (formulary)] 1 tab PO DAILY 04/13/17 [History] [place]-3S/Dha/Epa/Fish Oil [Fish Oil 1,200 mg Softgel] 1 cap PO HS 04/13/17 [History] Finasteride [Proscar] 5 mg PO DAILY 09/22/18 [History] Ubidecarenone [Co Q-10] 100 mg PO HS 09/22/18 [History] Lisinopril-Hctz 20-12.5 mg [Zestoretic 20-12.5] 1 tab PO DAILY 06/25/19 [History] Aspirin 81 mg PO DAILY #30 chew 06/27/19 [Rx] Atorvastatin [Lipitor] 40 mg PO DAILY #30 tab 06/27/19 [Rx] Clopidogrel [Plavix] 75 mg PO DAILY #30 tab 06/27/19 [Rx] Metoprolol Succinate (ER) [Toprol XL] 50 mg PO DAILY #30 tab.er.24h 06/27/19 [Rx] Nitroglycerin Sl Tabs [Nitrostat] 0.4 mg SUBLINGUAL Q5M PRN #25 tab 06/27/19 [Rx] Follow up Appointment(s)/Referral(s): Smith Seals MD [STAFF PHYSICIAN] - 07/05/19 10:00 am (Wednesday) Felicita Asencio MD [Primary Care Provider] - 1 Week (Spoke to air hoist operator. Office to call you with appointment time) Patient Instructions/Handouts: *Surgery [facility] - After Heart Catheterization - Clerical Adviser Instructions, Left Heart Catheterization (DC) Discharge Disposition: HOME SELF-CARE
== END 2019-06-27 13:31 | disposition home or self-care (01) | DRG 247 ==
LOC: EC 05:54 → 2SICU 06:59 → 3SCARD 06-26 12:41
PROVIDERS: ADMIT Internal Medicine; ATTEND Internal Medicine
PROC: 4A023N7 Measurement of Cardiac Sampling and Pressure, Left Heart, Percutaneous Approach (ICD-10-PCS; 2019-06-25)
PROC: B2111ZZ Fluoroscopy of Multiple Coronary Arteries using Low Osmolar Contrast (ICD-10-PCS; 2019-06-25)
PROC: 027035Z Dilation of Coronary Artery, One Artery with Two Drug-eluting Intraluminal Devices, Percutaneous Approach (ICD-10-PCS; principal; 2019-06-25 07:34)
PROC: 02C03ZZ Extirpation of Matter from Coronary Artery, One Artery, Percutaneous Approach (ICD-10-PCS; 2019-06-25 07:34)
DX: I21.19 ST elevation (STEMI) myocardial infarction involving other coronary artery of inferior wall (principal); I25.5 Ischemic cardiomyopathy; I13.10 Hypertensive heart and chronic kidney disease without heart failure, with stage 1 through stage 4 chronic kidney disease, or unspecified chronic kidney disease; N18.3 Chronic kidney disease, stage 3 (moderate); E78.5 Hyperlipidemia, unspecified; M15.9 Polyosteoarthritis, unspecified; N40.0 Benign prostatic hyperplasia without lower urinary tract symptoms; Z79.899 Other long term (current) drug therapy; Z87.891 Personal history of nicotine dependence; Z90.49 Acquired absence of other specified parts of digestive tract
CPT/HCPCS: 36415; 71046; 80048; 80053; 80061; 83036; 83735; 83880; 84484; 85025; 85379; 85610; 85730; 93005; 93306; 93458; 96361; 96365; 96372; 96375; 96376; 99291; C1874

== ENCOUNTER → 2021-03-14 | Outpatient (CLI) | payer MEDICARE ==
[2021-03-14 17:23] LABS: Basophils # (A) 0.04 X 10*3/uL (0.00-0.10); Basophils % (A) 0.6 %; Eosinophils # (A) 0.28 X 10*3/uL (0.04-0.35); Eosinophils % (A) 4.1 %; HCT 40.8 % (39.6-50.0); HGB 12.6 g/dL (13.0-17.0); Lymphocytes # (A) 1.38 X 10*3/uL (0.90-5.00); Lymphocytes % (A) 20.3 %; MCH 30.8 pg (27.0-32.0); MCHC 30.9 g/dL (32.0-37.0); MCV 99.8 fL (80.0-97.0); Mean Platelet Volume 10.4 fL (9.5-12.2); Monocytes # (A) 0.56 X 10*3/uL (0.20-1.00); Monocytes % (A) 8.2 %; Neutrophils # (A) 4.53 X 10*3/uL (1.80-7.70); Neutrophils % (A) 66.5 %; Platelet Count 202 X 10*3/uL (140-440); RBC 4.09 X 10*6/uL (4.40-5.60); RDW 12.7 % (11.5-14.5); WBC 6.81 X 10*3/uL (4.50-10.00)
[2021-03-14 21:20] LABS: Albumin 4.3 g/dL (3.80-4.90); Albumin/Globulin Ratio 1.65 (1.60-3.17); Anion Gap 8.1 mmol/L (4.00-12.00); Calcium 9.6 mg/dL (8.7-10.3); Carbon Dioxide 27.9 mmol/L (21.6-31.8); Chol/HDL Ratio 3.45; Globulin 2.6 g/dL (1.6-3.3); LDL Cholesterol,Calculated 79.4 mg/dL (0.0-131.0); Non-African American GFR(CKD) 55.2 (60.0-200.0); Potassium 5.2 mmol/L (3.5-5.5); Total Bilirubin 0.7 mg/dL (0.2-1.2); Total Protein 6.9 g/dL (6.2-8.2); Uric Acid 9.3 mg/dL (3.7-8.7); VLDL Calculation 23.6 mg/dL (5.00-40.00)
== END | disposition home or self-care (01) ==
LOC: LABWHC1 07:59
PROVIDERS: ATTEND Internal Medicine Clinical Cardiac Electrophysiology
DX: I12.9 Hypertensive chronic kidney disease with stage 1 through stage 4 chronic kidney disease, or unspecified chronic kidney disease (principal); I25.10 Atherosclerotic heart disease of native coronary artery without angina pectoris; E78.5 Hyperlipidemia, unspecified; M10.00 Idiopathic gout, unspecified site; N18.2 Chronic kidney disease, stage 2 (mild)
CPT/HCPCS: 36415; 80053; 80061; 84550; 85025

== ENCOUNTER → 2021-10-22 | Outpatient (CLI) | payer MEDICARE ==
--- NOTE | 2021-10-22 11:50 | FL ---
EXAMINATION TYPE: FL barium swallow DATE OF EXAM: 10/22/2021 CLINICAL HISTORY: Gastroesophageal reflux TECHNIQUE: A single contrast esophagram is performed utilizing barium. A total of 47 seconds of flu oroscopic time was utilized during procedure and 24 images obtained. COMPARISON: None FINDINGS: There appears to be a corkscrew pattern to the distal esophagus with tertiary contractions of esophagus. No filling defect or obstruction. Upper airway is patent with degenerative changes of t he cervical spine incidentally noted. There is mild gastroesophageal reflux and small hiatal hernia. IMPRESSION: 1. The distal esophagus demonstrates a corkscrew pattern which can be associated with chronic presbye sophagus and dysmotility. Recommend direct visualization. 2. No obstruction or filling defect. 3. Gastroesophageal reflux with small hiatal hernia.
== END | disposition home or self-care (01) ==
LOC: RADUSWWP 10:30
PROVIDERS: ATTEND Internal Medicine
DX: K21.9 Gastro-esophageal reflux disease without esophagitis (principal); K44.9 Diaphragmatic hernia without obstruction or gangrene
CPT/HCPCS: 74220

== ENCOUNTER → 2022-11-04 | Outpatient (CLI) | payer MEDICARE ==
[2022-11-04 15:14] LABS: Basophils # (A) 0.03 X 10*3/uL (0.00-0.10); Basophils % (A) 0.3 %; Eosinophils # (A) 0.25 X 10*3/uL (0.04-0.35); Eosinophils % (A) 2.8 %; HCT 39.9 % (39.6-50.0); HGB 12.5 g/dL (13.0-17.0); Immature Grans, Automated 0.3 %; Lymphocytes # (A) 1.32 X 10*3/uL (0.90-5.00); Lymphocytes % (A) 14.9 %; MCH 31.2 pg (27.0-32.0); MCHC 31.3 g/dL (32.0-37.0); MCV 99.5 fL (80.0-97.0); Mean Platelet Volume 10.1 fL (9.5-12.2); Monocytes % (A) 6.8 %; NRBC Per 100 WBC 0 /100 WBCS (0.0-0.0); Neutrophils # (A) 6.65 X 10*3/uL (1.80-7.70); Neutrophils % (A) 74.9 %; Platelet Count 237 X 10*3/uL (140-440); RBC 4.01 X 10*6/uL (4.40-5.60); RDW 13.5 % (11.5-14.5); WBC 8.88 X 10*3/uL (4.50-10.00)
[2022-11-04 15:51] LABS: Erythrocyte Sedimentation Rate 40 mm/Hr (0-20)
== END | disposition home or self-care (01) ==
LOC: LABWHC1 10:44
PROVIDERS: ATTEND Orthopaedic Surgery
DX: M25.50 Pain in unspecified joint (principal)
CPT/HCPCS: 36415; 85025; 85652; 86140

== ENCOUNTER 2023-01-29 09:58 | Emergency (ER) | payer MEDICARE ==
[2023-01-29 10:12] VITALS: PULSE 68; TEMP 98.2
[2023-01-29] MEDS ORDERED: SODIUM CHLORIDE 0.9% 500 ML 500 ML IV ONE (10:43)
[2023-01-29 11:08] LABS: Basophils % (A) 0 %; Eosinophils # (A) 0.2 k/uL (0-0.7); Eosinophils % (A) 4 %; HCT 39.6 % (39.0-53.0); HGB 13.1 gm/dL (13.0-17.5); Lymphocytes # (A) 1.3 k/uL (1.0-4.8); Lymphocytes % (A) 22 %; MCH 31.4 pg (25.0-35.0); MCHC 33.1 g/dL (31.0-37.0); MCV 94.9 fL (80.0-100.0); Mean Platelet Volume 7.2; Monocytes # (A) 0.3 k/uL (0-1.0); Monocytes % (A) 5 %; Neutrophils # (A) 3.9 k/uL (1.3-7.7); Neutrophils % (A) 66 %; Platelet Count 204 k/uL (150-450); RBC 4.17 m/uL (4.30-5.90); RDW 12.9 % (11.5-15.5); WBC 5.8 k/uL (3.8-10.6)
--- NOTE | 2023-01-29 11:08 | XR ---
EXAMINATION TYPE: XR chest 2V DATE OF EXAM: 01/29/2023 COMPARISON: 06/25/2019 HISTORY: Shortness of breath TECHNIQUE: Frontal and lateral views of the chest are obtained. FINDINGS: Scattered senescent parenchymal changes noted. Hyperinflation compatible with COPD. No evidence for infiltrate. No evidence for atelectasis. Heart size is stable. Mediastinal structures are stable and grossly unremarkable. No evidence for hilar prominence. Degenerative changes dorsal spine. IMPRESSION: 1. No evidence for acute pulmonary disease.
[2023-01-29 11:32] LABS: Partial Thromboplastin Time 24.2 sec (22.0-30.0); Prothrombin Time 10.9 sec (9.0-12.0)
--- NOTE | 2023-01-29 11:44 | ED ---
General Adult HPI - General Source: patient, RN notes reviewed Mode of arrival: ambulatory Limitations: no limitations <Amirah Wyman - Last Filed: 01/29/23 18:52> <Daisy Dumont - Last Filed: 01/30/23 08:12> - General Chief complaint: Recheck/Abnormal Lab/Rx Stated complaint: hypertension Time Seen by Provider: 01/29/23 10:22 - History of Present Illness Initial comments: 87-year-old male with a cardiac significant past medical history who presents to the emergency department with a chief complaint of hypertension. He patient reports that he woke up this morning and took his blood pressure and got recordings ranging from 200s/90. He reports feeling dizzy, lightheadedness. He reports that he ate something and sat down and his dizziness and lightheadedness have since resolved. He reports that he takes 20 mg of lisinopril daily for his blood pressure. He reports that he isn't taking his blood pressure medications as prescribed. He denies any fever, chills, vision changes, headache, cough, chest pain, palpitations, shortness of breath. (Amirah Wymna) - Related Data Home Medications Medication Instructions Recorded Confirmed Ascorbic Acid [Vitamin C] 500 mg PO DAILY 04/13/17 01/29/23 Finasteride [Proscar] 5 mg PO DAILY 09/22/18 01/29/23 Ubidecarenone [Co Q-10] 200 mg PO DAILY 09/22/18 01/29/23 Lisinopril-Hctz 20-12.5 mg 1 tab PO DAILY 06/25/19 01/29/23 [Zestoretic 20-12.5] Acetaminophen [Tylenol Arthritis] 650 mg PO DAILY 01/29/23 01/29/23 Cholecalciferol [Vitamin D3 (25 50 mcg PO DAILY 01/29/23 01/29/23 Mcg = 1000 Iu)] Ferrous Sulfate [Feosol] 325 mg PO DAILY 01/29/23 01/29/23 Glucosam/Anirudh-Msm1/C/Bharath/Bosw 2 tab PO DAILY 01/29/23 01/29/23 [Glucosamine-Chondroitin Tablet] Rosuvastatin Calcium [Crestor] 40 mg PO DAILY 01/29/23 01/29/23 carvediloL [Coreg] 6.25 mg PO BID 01/29/23 01/29/23 Previous Rx's Medication Instructions Recorded Aspirin 81 mg PO DAILY #30 chew 06/27/19 Nitroglycerin Sl Tabs [Nitrostat] 0.4 mg SUBLINGUAL Q5M PRN #25 tab 06/27/19 Allergies Allergy/AdvReac Type Severity Reaction Status Date / Time No Known Allergies Allergy Verified 01/29/23 12:02 Review of Systems ROS Other: All systems not noted in ROS Statement are negative. <Amirah Wyman - Last Filed: 01/29/23 18:52> ROS Other: All systems not noted in ROS Statement are negative. <Daisy Dumont - Last Filed: 01/30/23 08:12> ROS Statement: Those systems with pertinent positive or pertinent negative responses have been documented in the HPI. Past Medical History Past Medical History: Hyperlipidemia, Hypertension, Myocardial Infarction (AL), Osteoarthritis (OA) Last Myocardial Infarction Date:: 06/25/2019 History of Any Multi-Drug Resistant Organisms: None Reported Past Surgical History: Appendectomy, Heart Catheterization With Stent, Orthopedic Surgery, Tonsillectomy Additional Past Surgical History / Comment(s): left and right shoulder surgery Date of Last Stent Placement:: 06/25/2019 Past Psychological History: No Psychological Hx Reported Smoking Status: Never smoker Past Alcohol Use History: Occasional Past Drug Use History: None Reported <Amirah Wyman - Last Filed: 01/29/23 18:52> General Exam Limitations: no limitations General appearance: alert, in no apparent distress Head exam: Present: atraumatic, normocephalic, normal inspection Eye exam: Present: normal appearance, PERRL, EOMI. Absent: scleral icterus, conjunctival injection, periorbital swelling ENT exam: Present: normal exam, mucous membranes moist Neck exam: Present: normal inspection. Absent: tenderness, meningismus, lymphadenopathy Respiratory exam: Present: normal lung sounds bilaterally. Absent: respiratory distress, wheezes, rales, rhonchi, stridor Cardiovascular Exam: Present: regular rate, normal rhythm, normal heart sounds. Absent: systolic murmur, diastolic murmur, rubs, gallop, clicks GI/Abdominal exam: Present: soft, normal bowel sounds. Absent: distended, tenderness, guarding, rebound, rigid Extremities exam: Present: normal inspection, full ROM, normal capillary refill. Absent: tenderness, pedal edema, joint swelling, calf tenderness Back exam: Present: normal inspection Neurological exam: Present: alert, oriented X3, CN II-XII intact Psychiatric exam: Present: normal affect, normal mood Skin exam: Present: warm, dry, intact, normal color. Absent: rash <Amirah Wyman - Last Filed: 01/29/23 18:52> Course <Amirah Wyman - Last Filed: 01/29/23 18:52> Vital Signs 01/29/23 01/29/23 10:08 12:33 Temperature 98.2 F Pulse Rate 68 68 Respiratory 20 18 Rate Blood Pressure 178/72 155/84 O2 Sat by Pulse 98 98 Oximetry - Reevaluation(s) Reevaluation #1: 01/29/23 11:43 Pt re-evaluated. Patient notified awaiting blood work results. No acute distress BP is 155/86 (Amirah Wyman) EKG Findings - EKG Comments: EKG Findings:: I interpreted the following: EKG performed at 10:45. 61 bpm with normal sinus rhythm and first-degree AV block. GA interval 299, QRS duration 105, QT/QTc 386/390 mins <Amirah Wyman - Last Filed: 01/29/23 18:52> Medical Decision Making - Lab Data Result diagrams: 01/29/23 10:48 01/29/23 10:48 <Amirah Wyman - Last Filed: 01/29/23 18:52> - Lab Data Result diagrams: 01/29/23 10:48 01/29/23 10:48 <Daisy Dumont - Last Filed: 01/30/23 08:12> - Medical Decision Making Was pt. sent in by a medical professional or institution (, PA, FORESTRY PATROLMAN, urgent care, hospital, or usp...) When possible be specific @ -[No] Did you speak to anyone other than the patient for history (EMS, parent, family, police, friend...)? What history was obtained from this source @ -[No] Did you review nursing and triage notes (agree or disagree)? Why? @ -[I reviewed and agree with nursing and triage notes] Were old charts reviewed (outside hosp., previous admission, EMS record, old EKG, old radiological studies, urgent care reports/EKG's, usp records)? Report findings @ -[No old charts were reviewed] Differential Diagnosis (chest pain, altered mental status, abdominal pain women, abdominal pain men, vaginal bleeding, weakness, fever, dyspnea, syncope, headache, dizziness, GI bleed, back pain, seizure, CVA, palpatations, mental health, musculoskeletal)? @ -[not applicable] EKG interpreted by me (3pts min.). @ -[As above] X-rays interpreted by me (1pt min.). @ -Chest x-ray negative for any acute intracranial pleural process. CT interpreted by me (1pt min.). @ -[None done] U/S interpreted by me (1pt. min.). @ -[None done] What testing was considered but not performed or refused? (CT, X-rays, U/S, labs)? Why? @ -[None] What meds were considered but not given or refused? Why? @ -[None] Did you discuss the management of the patient with other professionals (professionals i.e. , PA, FORESTRY PATROLMAN, lab, RT, psych nurse, manager social, associate professor of biology, teacher, postal delivery officer, patient case coordinator)? Give summary @ -[No] Was smoking cessation discussed for >3mins.? @ -[No] Was critical care preformed (if so, how long)? @ -[No] Were there social determinants of health that impacted care today? How? (Homelessness, low income, unemployed, alcoholism, drug addiction, transportation, low edu. Level, literacy, decrease access to med. care, usp, rehab)? @ -[No] Was there de-escalation of care discussed even if they declined (Discuss DNR or withdrawal of care, Hospice)? DNR status @ -[No] What co-morbidities impacted this encounter? (DM, HTN, Smoking, COPD, CAD, Cancer, CVA, ARF, Chemo, Hep., AIDS, mental health diagnosis, sleep apnea, morbid obesity)? @ -[None] Was patient admitted / discharged? Hospital course, mention meds given and route, prescriptions, significant lab abnormalities, going to OR and other pertinent info. @ -Discharged. This is a 87-year-old male who presents to the emergency department with a rash. Patient had a thorough history and physical exam performed while in the ED. Heart rate regular rate and rhythm, lungs clear to auscultation bilaterally abdomen is soft and nontender. There is a rash across the lower abdomen is non-tender. Patient had lab work and imaging pe rformed in the ED which were essentially unremarkable. He was given 500cc's IV fluids for symptomatic relief. I discussed the results in detail with the patient verbalized understanding, questions and concerns were addressed. The patient was discharged in stable condition. Case discussed with HELENA Padilla who agrees with plan of care Undiagnosed new problem with uncertain prognosis? @ -[No] Drug Therapy requiring intensive monitoring for toxicity (Heparin, Nitro, Insulin, Cardizem)? @ -[No] Were any procedures done? @ -[No] Diagnosis/symptom? @ -asymptomatic HTN Acute, or Chronic, or Acute on Chronic? @ -acute Uncomplicated (without systemic symptoms) or Complicated (systemic symptoms)? @ -uncomplicated Side effects of treatment? @ -[No] Exacerbation, Progression, or Severe Exacerbation? @ -[No] Poses a threat to life or bodily function? How? (Chest pain, USA, AL, pneumonia, PE, COPD, DKA, ARF, appy, cholecystitis, CVA, Diverticulitis, Homicidal, Suicidal, threat to staff... and all critical care pts) @ -low likelihood (Amirah Wyman) We did discuss the patient's care with Dr. Asencio who will see the patient in office on Wednesday. I was the overseeing DrEdis for this patient, not [facility] - Lab Data Lab Results 01/29/23 01/29/23 01/29/23 Range/Units 10:48 10:48 10:48 WBC 5.8 (3.8-10.6) k/uL RBC 4.17 L (4.30-5.90) m/uL Hgb 13.1 (13.0-17.5) gm/dL Hct 39.6 (39.0-53.0) % MCV 94.9 (80.0-100.0) fL MCH 31.4 (25.0-35.0) pg MCHC 33.1 (31.0-37.0) g/dL RDW 12.9 (11.5-15.5) % Plt Count 204 (150-450) k/uL MPV 7.2 Neutrophils % 66 % Lymphocytes % 22 % Monocytes % 5 % Eosinophils % 4 % Basophils % 0 % Neutrophils # 3.9 (1.3-7.7) k/uL Lymphocytes # 1.3 (1.0-4.8) k/uL Monocytes # 0.3 (0-1.0) k/uL Eosinophils # 0.2 (0-0.7) k/uL Basophils # 0.0 (0-0.2) k/uL PT 10.9 (9.0-12.0) sec INR 1.0 (<1.2) APTT 24.2 (22.0-30.0) sec Sodium 140 (137-145) mmol/L Potassium 4.7 (3.5-5.1) mmol/L Chloride 104 (98-107) mmol/L Carbon Dioxide 29 (22-30) mmol/L Anion Gap 7 mmol/L BUN 24 H (9-20) mg/dL Creatinine 1.06 (0.66-1.25) mg/dL Est GFR (CKD-EPI)AfAm 74 (>60 ml/min/1.73 sqM) Est GFR (CKD-EPI)NonAf 64 (>60 ml/min/1.73 sqM) Glucose 105 H (74-99) mg/dL Calcium 9.6 (8.4-10.2) mg/dL Total Bilirubin 0.6 (0.2-1.3) mg/dL AST 29 (17-59) U/L ALT 21 (4-49) U/L Alkaline Phosphatase 44 (38-126) U/L Troponin I (0.000-0.034) ng/mL Total Protein 7.6 (6.3-8.2) g/dL Albumin 4.3 (3.5-5.0) g/dL Influenza Type A (PCR) (Not Detectd) Influenza Type B (PCR) (Not Detectd) RSV (PCR) (Not Detectd) SARS-CoV-2 (PCR) (Not Detectd) 01/29/23 01/29/23 Range/Units 10:48 10:48 WBC (3.8-10.6) k/uL RBC (4.30-5.90) m/uL Hgb (13.0-17.5) gm/dL Hct (39.0-53.0) % MCV (80.0-100.0) fL MCH (25.0-35.0) pg MCHC (31.0-37.0) g/dL RDW (11.5-15.5) % Plt Count (150-450) k/uL MPV Neutrophils % % Lymphocytes % % Monocytes % % Eosinophils % % Basophils % % Neutrophils # (1.3-7.7) k/uL Lymphocytes # (1.0-4.8) k/uL Monocytes # (0-1.0) k/uL Eosinophils # (0-0.7) k/uL Basophils # (0-0.2) k/uL PT (9.0-12.0) sec INR (<1.2) APTT (22.0-30.0) sec Sodium (137-145) mmol/L Potassium (3.5-5.1) mmol/L Chloride (98-107) mmol/L Carbon Dioxide (22-30) mmol/L Anion Gap mmol/L BUN (9-20) mg/dL Creatinine (0.66-1.25) mg/dL Est GFR (CKD-EPI)AfAm (>60 ml/min/1.73 sqM) Est GFR (CKD-EPI)NonAf (>60 ml/min/1.73 sqM) Glucose (74-99) mg/dL Calcium (8.4-10.2) mg/dL Total Bilirubin (0.2-1.3) mg/dL AST (17-59) U/L ALT (4-49) U/L Alkaline Phosphatase (38-126) U/L Troponin I <0.012 (0.000-0.034) ng/mL Total Protein (6.3-8.2) g/dL Albumin (3.5-5.0) g/dL Influenza Type A (PCR) Not Detected (Not Detectd) Influenza Type B (PCR) Not Detected (Not Detectd) RSV (PCR) Not Detected (Not Detectd) SARS-CoV-2 (PCR) Not Detected (Not Detectd) Disposition Is patient prescribed a controlled substance at d/c from ED?: No Time of Disposition: 12:20 <Amirah Wyman - Last Filed: 01/29/23 18:52> <Daisy Dumont - Last Filed: 01/30/23 08:12> Clinical Impression: HTN (hypertension) Disposition: HOME SELF-CARE Condition: Stable Instructions (If sedation given, give patient instructions): Hypertension (ED) Additional Instructions: Return to the nearest emergency department if symptoms worsen or persist Referrals: Felicita Asencio MD [Primary Care Provider] - 1-2 days
[2023-01-29 11:47] LABS: Albumin 4.3 g/dL (3.5-5.0); Calcium 9.6 mg/dL (8.4-10.2); Potassium 4.7 mmol/L (3.5-5.1); Total Bilirubin 0.6 mg/dL (0.2-1.3); Total Protein 7.6 g/dL (6.3-8.2)
[2023-01-29 12:34] VITALS: BP 155/84; RESP 18
== END 2023-01-29 12:42 | disposition home or self-care (01) ==
LOC: EC 09:58
DX: I10 Essential (primary) hypertension (principal); E78.5 Hyperlipidemia, unspecified; I25.2 Old myocardial infarction; M19.90 Unspecified osteoarthritis, unspecified site; Z79.899 Other long term (current) drug therapy; Z20.822 Contact with and (suspected) exposure to COVID-19
CPT/HCPCS: 36415; 71046; 80053; 84484; 85025; 85610; 85730; 87636; 93005; 96360; 96361; 99284

== ENCOUNTER → 2024-01-12 | Outpatient (CLI) | payer MEDICARE ==
[2024-01-12 17:53] LABS: Blood Urea Nitrogen 24.7 mg/dL (9.0-27.0); Carbon Dioxide 26.7 mmol/L (21.6-31.8); Chloride 103 mmol/L (96-109); Glucose 95 mg/dL (70-110); Magnesium 2.2 mg/dL (1.5-2.4); Sodium 140 mmol/L (135-145)
== END | disposition home or self-care (01) ==
LOC: LABWHC1 10:39
PROVIDERS: ATTEND Internal Medicine Clinical Cardiac Electrophysiology
DX: I10 Essential (primary) hypertension (principal)
CPT/HCPCS: 36415; 80048; 83735

== ENCOUNTER → 2024-05-17 | Outpatient (CLI) | payer MEDICARE ==
--- NOTE | 2024-05-17 22:46 | XR ---
EXAMINATION TYPE: XR KUB DATE OF EXAM: 05/17/2024 COMPARISON: 03/28/2018 INDICATION: Hematuria TECHNIQUE: Single view abdomen FINDINGS: There is a normal bowel gas pattern. Fecal bolus is at the rectum. Psoas margins are normal. No organomegaly is present. Degenerative disc changes through the lumbar spine. IMPRESSION: 1. Unremarkable Abdomen
== END | disposition home or self-care (01) ==
LOC: RADXRMAIN 10:08
PROVIDERS: ATTEND Internal Medicine
DX: R31.29 Other microscopic hematuria (principal)
CPT/HCPCS: 74018

== ENCOUNTER → 2024-08-18 | Outpatient (CLI) | payer MEDICARE ==
[2024-08-18 09:46] LABS: African American GFR (CKD) 56 (>60 ml/min/1.73 sqM); Blood Urea Nitrogen 30 mg/dL (9-20); Non-African American GFR(CKD) 48 (>60 ml/min/1.73 sqM)
--- NOTE | 2024-08-18 17:05 | CT ---
EXAMINATION TYPE: CT urogram wo/w con CT DLP: 3052.5 mGycm, Automated exposure control for dose reduction was used. DATE OF EXAM: 08/18/2024 10:43 AM COMPARISON: KUB radiograph 05/17/2024, CTA chest 09/22/2018 CLINICAL INDICATION:Male, 88 years old with history of R31.29 MICRO HEMATURIA; PHH, micro hematuria, groin pain TECHNIQUE: Urogram of the abdomen and pelvis was performed before and after the administration of 100 cc of IV c ontrast Isovue 300 contrast. Delayed imaging was performed. Coronal and sagittal reformats were perfo rmed. One or more CT dose reduction strategies were utilized during this examination. 2D and 3D recon structions are performed to assist visualization of the urinary tract on a separate workstation. FINDINGS: GENITOURINARY: RIGHT KIDNEY AND URETER: No calculi. No hydronephrosis or hydroureter. Tiny posterior right cortical 5 mm hypodense focus without enhancement (series 8, image 22). May represent an angiomyolipoma. No ur othelial lesions: no filling defect, dilation, stricture or wall thickening. LEFT KIDNEY AND URETER: No calculi. No hydronephrosis or hydroureter. Anterior left mid kidney cortic al 1.0 cm lesion with possible enhancement (series 8, image 20). Posterior left mid kidney cortical 7 mm hypodense lesion with possible enhancement (series 8, image 22). Exophytic right posterior inferi or pole cortical 9 mm lesion with possible enhancement (series 8, image 25). These lesions are small character which limits evaluation. No urothelial lesions: no filling defect, dilation, stricture or w all thickening. URINARY BLADDER: Normal, no calculi, mass or other lesions. REPRODUCTIVE: Enlarged prostate gland measuring 5.0 cm in transverse dimension. This indents upon the urinary bladder base. Bilateral hydroceles. ABDOMEN LIVER: . GALLBLADDER AND BILE DUCTS: Unremarkable PANCREAS: Unremarkable. SPLEEN: Unremarkable. ADRENAL GLANDS: Unremarkable. STOMACH AND BOWEL: Pancolonic diverticulosis without evidence for acute diverticulitis. No focal david l wall thickening or surrounding inflammatory changes. No evidence of bowel obstruction. PERITONEUM: No evidence of pneumoperitoneum, free fluid, or adenopathy. VASCULATURE: Moderate atherosclerotic calcifications are present throughout the abdominal aorta and i ts branches. No abdominal aortic aneurysm. Tortuosity of the abdominal aorta. MUSCULOSKELETAL: No acute osseous abnormalities. Mild to moderate osteoarthritic changes of both hips . Degenerative changes both SI joints with anterior bridging. DISH of the lower thoracic spine. Moder ate multilevel degenerative changes of the visualized spine. Partial visualization of right humeral i ntramedullary rudy. SOFT TISSUE/ABDOMINAL WALL: Small fat filled right inguinal hernia. Partial visualization of right ch est wall gynecomastia. LOWER CHEST: Subsegmental atelectasis within the bilateral lower lobes. Dilated ascending thoracic ao rta measuring up to 4.4 cm. Moderate LAD and RCA coronary artery calcifications. Mildly enlarged hear t. No pericardial effusion. Circumferential wall thickening of the distal esophagus. IMPRESSION: 1. No evidence of urolithiasis or urothelial neoplasm. 2. There are bilateral subcentimeter hypodense renal lesions. Small size limits violation. The right lesion measures 5 mm and may represent angiomyolipoma. The 3 left lesions may demonstrate some enhanc ement. Etiologies include renal cell carcinoma versus adenoma versus oncocytoma versus other. Further evaluation with MR abdomen with IV contrast (renal mass protocol) is recommended in the setting of h ematuria. 3. Prostatomegaly which indents upon the urinary bladder base. 4. Stable ascending thoracic aortic aneurysm measuring 4.[address] 09/22/2018. 5. Pancolonic diverticulosis. 6. Small fat filled right femoral hernia. 7. Circumferential wall thickening of the distal esophagus which may relate to GERD/esophagitis. [facility], , 08/18/2024 5:03 PM
== END | disposition home or self-care (01) ==
LOC: RADCTMAIN 09:04
PROVIDERS: ATTEND Internal Medicine
DX: R31.29 Other microscopic hematuria
CPT/HCPCS: 36415; 74178; 74400; 82565; 84520

== ENCOUNTER → 2024-09-04 | Outpatient (CLI) | payer MEDICARE ==
--- NOTE | 2024-09-05 08:26 | MR ---
EXAMINATION TYPE: MR abdomen wo con DATE OF EXAM: 09/04/2024 9:33 AM INDICATION: Patient age:Male; 88 years old; Reason for study: OTHER SPECIFIED DISORDERS OF KIDNEY AND URETER; H. COMPARISON: CT urogram 08/18/2024, renal ultrasound 10/07/2017 TECHNIQUE: Multiplanar multi-sequence imaging of the abdomen was performed without IV contrast. This significantly limits evaluation. Patient refused intravenous contrast. FINDINGS: LOWER CHEST: Mild cardiomegaly. ABDOMEN Liver: Unremarkable. Gallbladder and Bile ducts: Unremarkable. Pancreas: Unremarkable. Spleen: Unremarkable. Adrenal glands: Unremarkable. Kidneys: No hydronephrosis. Tiny cortical right renal upper pole T2 hyperintense 4 mm cyst. There are 2 posterior mid left renal cortical T2 hyperintense cysts measuring 7 mm and 10 mm. Cortical defect identified in the posterior right mid kidney cortex without dropout of signal on out of phase imaging to suggest angiomyolipoma. Anterior left mid kidney 1.0 cm hypodense heterogenous T2 lesion (series 701, image 37). This is intrinsically T1 hyperintense. Evaluation is significantly limited due to lac k of intravenous contrast. Stomach and Bowel: Small hiatal hernia. Colonic diverticulosis. No evidence for obstruction. Peritoneum: No evidence of pneumoperitoneum, free fluid, or adenopathy. Vasculature: Unremarkable. No aortic aneurysm. Abdominal wall: Unremarkable. Musculoskeletal: The osseous structures appear intact. Multilevel degenerative disc disease. Straight ening of the normal lumbar lordosis. IMPRESSION: Small bilateral simple appearing renal cysts with a left anterior mid kidney cortical 1 cm T1 intrins ic signal lesion. May represent a proteinaceous/hemorrhagic cyst versus other etiologies with renal c ell carcinoma not excluded. Evaluation is significantly limited due to lack of intravenous contrast. Follow-up MR abdomen with IV contrast (renal mass protocol) is recommended in 3-6 months versus other less sensitive surveillance modalities such as ultrasound or CT. [facility], , 09/05/2024 8:24 AM
== END | disposition home or self-care (01) ==
LOC: RADMRIMAIN 08:25
PROVIDERS: ATTEND Internal Medicine
CPT/HCPCS: 74181

== ENCOUNTER 2024-10-13 16:41 | Emergency (ER) | payer MEDICARE ==
[2024-10-13 16:48] VITALS: TEMP 97.5
[2024-10-13 17:44] LABS: Basophils % (A) 0 %; Eosinophils # (A) 0.2 k/uL (0-0.7); Eosinophils % (A) 3 %; HCT 38.3 % (39.0-53.0); HGB 12.8 gm/dL (13.0-17.5); Lymphocytes # (A) 1.4 k/uL (1.0-4.8); Lymphocytes % (A) 18 %; MCH 31.7 pg (25.0-35.0); MCHC 33.5 g/dL (31.0-37.0); MCV 94.8 fL (80.0-100.0); Mean Platelet Volume 7.2; Monocytes # (A) 0.4 k/uL (0-1.0); Monocytes % (A) 6 %; Neutrophils # (A) 5.6 k/uL (1.3-7.7); Neutrophils % (A) 71 %; Platelet Count 160 k/uL (150-450); RBC 4.03 m/uL (4.30-5.90); WBC 7.9 k/uL (3.8-10.6)
[2024-10-13 17:46] LABS: ALT 20 U/L (4-49); AST 28 U/L (17-59); African American GFR (CKD) 60 (>60 ml/min/1.73 sqM); Albumin 4.2 g/dL (3.5-5.0); Alkaline Phosphatase 50 U/L (38-126); Anion Gap 5 mmol/L; Blood Urea Nitrogen 30 mg/dL (9-20); Calcium 9.3 mg/dL (8.4-10.2); Carbon Dioxide 27 mmol/L (22-30); Chloride 104 mmol/L (98-107); Creatine Kinase 107 U/L (55-170); Glucose 93 mg/dL (74-99); Non-African American GFR(CKD) 52 (>60 ml/min/1.73 sqM); Potassium 4.5 mmol/L (3.5-5.1); Sodium 136 mmol/L (137-145); Total Protein 7.3 g/dL (6.3-8.2)
[2024-10-13] MEDS: SODIUM CHLORIDE 0.9% 500 ML 500 ML IV STA (17:50)
[2024-10-13 17:52] LABS: Partial Thromboplastin Time 23.6 sec (22.0-30.0); Prothrombin Time 10.9 sec (10.0-12.5)
--- NOTE | 2024-10-13 18:00 | ED ---
General Adult HPI - General Chief complaint: Neuro Symptoms/Deficit Stated complaint: Dizziness Time Seen by Provider: 10/13/24 16:49 Source: patient, RN notes reviewed, old records reviewed Mode of arrival: wheelchair Limitations: no limitations - History of Present Illness Initial comments: 88-year-old male presents for evaluation of dizziness. Patient symptoms began at approximately 1600. Patient states he was standing reaching for something off of a shelf and felt dizzy like the room was spinning. He states he had weakness in both of his legs. He measured his blood pressure noted that it was quite elevated. He does have history of hypertension. He states the weakness was in both of his legs and has since resolved. He also states that his dizziness has improved and he reports a slight headache at the time of the dizziness. He states he did not eat or drink well today due to a that he was attending. - Related Data Home Medications Medication Instructions Recorded Confirmed Ascorbic Acid [Vitamin C] 500 mg PO DAILY 04/13/17 01/29/23 Finasteride [Proscar] 5 mg PO DAILY 09/22/18 01/29/23 Ubidecarenone [Co Q-10] 200 mg PO DAILY 09/22/18 01/29/23 Lisinopril-Hctz 20-12.5 mg 1 tab PO DAILY 06/25/19 01/29/23 [Zestoretic 20-12.5] Acetaminophen [Tylenol Arthritis] 650 mg PO DAILY 01/29/23 01/29/23 Cholecalciferol [Vitamin D3 (25 50 mcg PO DAILY 01/29/23 01/29/23 Mcg = 1000 Iu)] Ferrous Sulfate [Feosol] 325 mg PO DAILY 01/29/23 01/29/23 Glucosam/Anirudh-Msm1/C/Bharath/Bosw 2 tab PO DAILY 01/29/23 01/29/23 [Glucosamine-Chondroitin Tablet] Rosuvastatin Calcium [Crestor] 40 mg PO DAILY 01/29/23 01/29/23 carvediloL [Coreg] 6.25 mg PO BID 01/29/23 01/29/23 Previous Rx's Medication Instructions Recorded Aspirin 81 mg PO DAILY #30 chew 06/27/19 Nitroglycerin Sl Tabs [Nitrostat] 0.4 mg SUBLINGUAL Q5M PRN #25 tab 06/27/19 Allergies Allergy/AdvReac Type Severity Reaction Status Date / Time No Known Allergies Allergy Verified 10/13/24 16:42 Review of Systems ROS Statement: Those systems with pertinent positive or pertinent negative responses have been documented in the HPI. ROS Other: All systems not noted in ROS Statement are negative. Past Medical History Past Medical History: Hyperlipidemia, Hypertension, Myocardial Infarction (HI), Osteoarthritis (OA) Last Myocardial Infarction Date:: 06/25/2019 History of Any Multi-Drug Resistant Organisms: None Reported Past Surgical History: Appendectomy, Heart Catheterization With Stent, Orthopedic Surgery, Tonsillectomy Additional Past Surgical History / Comment(s): left and right shoulder surgery Date of Last Stent Placement:: 06/25/2019 Past Psychological History: No Psychological Hx Reported Smoking Status: Former smoker Past Alcohol Use History: Daily Past Drug Use History: None Reported General Exam Limitations: no limitations General appearance: alert, in no apparent distress Head exam: Present: atraumatic, normocephalic Eye exam: Present: normal appearance, PERRL ENT exam: Present: normal exam, TM's normal bilaterally Neck exam: Present: normal inspection Respiratory exam: Present: normal lung sounds bilaterally. Absent: respiratory distress, wheezes Cardiovascular Exam: Present: regular rate. Absent: normal rhythm, bradycardia GI/Abdominal exam: Present: soft. Absent: distended, tenderness, guarding Extremities exam: Present: normal inspection Neurological exam: Present: alert, oriented X3, CN II-XII intact, other (No limb ataxia, 5 out of 5 strength throughout, NIH is 0). Absent: motor sensory deficit Psychiatric exam: Present: normal affect, normal mood Skin exam: Present: warm, dry, intact Course Vital Signs 10/13/24 10/13/24 10/13/24 16:43 17:56 18:56 Temperature 97.5 F L Pulse Rate 73 67 62 Respiratory 18 16 20 Rate Blood Pressure 185/93 144/91 145/94 O2 Sat by Pulse 93 L 96 98 Oximetry - Reevaluation(s) Reevaluation #1: 10/13/24 19:03 Patient reevaluated, resting comfortable, no ataxia, no recurrent symptoms, dizziness resolved. blood pressure improved without treatment. Medical Decision Making - Medical Decision Making Was pt. sent in by a medical professional or institution (, PA, BLANKET WASHER, urgent care, hospital, or detention...) When possible be specific @ -No Did you speak to anyone other than the patient for history (EMS, parent, family, police, friend...)? What history was obtained from this source @ -No Did you review nursing and triage notes (agree or disagree)? Why? @ -I reviewed and agree with nursing and triage notes Were old charts reviewed (outside hosp., previous admission, EMS record, old EKG, old radiological studies, urgent care reports/EKG's, detention records)? Report findings @ -No old charts were reviewed Differential Diagnosis differential Dizziness: Benign paroxysmal positional Vertigo, Meniere's disease, otitis media, acoustic neuroma, vertebrobasilar insufficiency, cerebellar stroke, encephalitis, hypovolemic, arrhythmia, coronary artery syndrome, anemia, this is not meant to be an all-inclusive list EKG interpreted by me (3pts min.). @ -[Bradycardia rate of 58, NC interval 189, QRS duration 109, QTc [address] segment elevation X-rays interpreted by me (1pt min.). @ -None done CT interpreted by me (1pt min.). @ -CT brain is negative for intracranial hemorrhage or mass effect U/S interpreted by me (1pt. min.). @ -None done What testing was considered but not performed or refused? (CT, X-rays, U/S, labs)? Why? @ -None What meds were considered but not given or refused? Why? @ -None Did you discuss the management of the patient with other professionals (professionals i.e. , PA, BLANKET WASHER, lab, RT, psych nurse, director social welfare, front desk auxiliary, teacher, corporate officer, case maker)? Give summary @ -No Was smoking cessation discussed for >3mins.? @ -No Was critical care preformed (if so, how long)? @ -No Were there social determinants of health that impacted care today? How? (Homelessness, low income, unemployed, alcoholism, drug addiction, transportation, low edu. Level, literacy, decrease access to med. care, residential, rehab)? @ -No Was there de-escalation of care discussed even if they declined (Discuss DNR or withdrawal of care, Hospice)? DNR status @ -No What co-morbidities impacted this encounter? (DM, HTN, Smoking, COPD, CAD, Cancer, CVA, ARF, Chemo, Hep., AIDS, mental health diagnosis, sleep apnea, morbid obesity)? @ -[Hypertension Was patient admitted / discharged? Hospital course, mention meds given and route, prescriptions, significant lab abnormalities, going to OR and other pertinent info. @ 88-year-old male presenting for evaluation of positional dizziness. Symptoms resolved upon arrival. Normal neurologic exam with NIH of 0 no ataxia, no nystagmus no limb weakness or numbness. Patient does receive workup including EKG, CBC, CMP, head CT, workup is unremarkable. He remains asymptomatic. We discussed hydration and eating regular meals and strict return parameters. Patient will follow-up with primary care provider and return to the emergency department with any worsening or changing symptoms. Undiagnosed new problem with uncertain prognosis? @ -No Drug Therapy requiring intensive monitoring for toxicity (Heparin, Nitro, Insulin, Cardizem)? @ -No Were any procedures done? @ -No Diagnosis/symptom? @ -[Dizziness Acute, or Chronic, or Acute on Chronic? @ -Acute Uncomplicated (without systemic symptoms) or Complicated (systemic symptoms)? @ -Default Side effects of treatment? @ -No Exacerbation, Progression, or Severe Exacerbation? @ -No Poses a threat to life or bodily function? How? (Chest pain, USA, HI, pneumonia, PE, COPD, DKA, ARF, appy, cholecystitis, CVA, Diverticulitis, Homicidal, Suicidal, threat to staff... and all critical care pts) @ -Low risk at this time - Lab Data Result diagrams: 10/13/24 17:26 10/13/24 17:26 Lab Results 10/13/24 10/13/24 10/13/24 Range/Units 17:26 17:26 17:26 WBC 7.9 (3.8-10.6) k/uL RBC 4.03 L (4.30-5.90) m/uL Hgb 12.8 L (13.0-17.5) gm/dL Hct 38.3 L (39.0-53.0) % MCV 94.8 (80.0-100.0) fL MCH 31.7 (25.0-35.0) pg MCHC 33.5 (31.0-37.0) g/dL RDW 13.0 (11.5-15.5) % Plt Count 160 (150-450) k/uL MPV 7.2 Neutrophils % 71 % Lymphocytes % 18 % Monocytes % 6 % Eosinophils % 3 % Basophils % 0 % Neutrophils # 5.6 (1.3-7.7) k/uL Lymphocytes # 1.4 (1.0-4.8) k/uL Monocytes # 0.4 (0-1.0) k/uL Eosinophils # 0.2 (0-0.7) k/uL Basophils # 0.0 (0-0.2) k/uL PT 10.9 (10.0-12.5) sec INR 1.0 (<1.2) APTT 23.6 (22.0-30.0) sec Sodium 136 L (137-145) mmol/L Potassium 4.5 (3.5-5.1) mmol/L Chloride 104 (98-107) mmol/L Carbon Dioxide 27 (22-30) mmol/L Anion Gap 5 mmol/L BUN 30 H (9-20) mg/dL Creatinine 1.24 (0.66-1.25) mg/dL Est GFR (CKD-EPI)AfAm 60 (>60 ml/min/1.73 sqM) Est GFR (CKD-EPI)NonAf 52 (>60 ml/min/1.73 sqM) Glucose 93 (74-99) mg/dL Calcium 9.3 (8.4-10.2) mg/dL Total Bilirubin 1.0 (0.2-1.3) mg/dL AST 28 (17-59) U/L ALT 20 (4-49) U/L Alkaline Phosphatase 50 (38-126) U/L Creatine Kinase 107 (55-170) U/L Troponin I (0.000-0.034) ng/mL Total Protein 7.3 (6.3-8.2) g/dL Albumin 4.2 (3.5-5.0) g/dL 10/13/24 Range/Units 17:26 WBC (3.8-10.6) k/uL RBC (4.30-5.90) m/uL Hgb (13.0-17.5) gm/dL Hct (39.0-53.0) % MCV (80.0-100.0) fL MCH (25.0-35.0) pg MCHC (31.0-37.0) g/dL RDW (11.5-15.5) % Plt Count (150-450) k/uL MPV Neutrophils % % Lymphocytes % % Monocytes % % Eosinophils % % Basophils % % Neutrophils # (1.3-7.7) k/uL Lymphocytes # (1.0-4.8) k/uL Monocytes # (0-1.0) k/uL Eosinophils # (0-0.7) k/uL Basophils # (0-0.2) k/uL PT (10.0-12.5) sec INR (<1.2) APTT (22.0-30.0) sec Sodium (137-145) mmol/L Potassium (3.5-5.1) mmol/L Chloride (98-107) mmol/L Carbon Dioxide (22-30) mmol/L Anion Gap mmol/L BUN (9-20) mg/dL Creatinine (0.66-1.25) mg/dL Est GFR (CKD-EPI)AfAm (>60 ml/min/1.73 sqM) Est GFR (CKD-EPI)NonAf (>60 ml/min/1.73 sqM) Glucose (74-99) mg/dL Calcium (8.4-10.2) mg/dL Total Bilirubin (0.2-1.3) mg/dL AST (17-59) U/L ALT (4-49) U/L Alkaline Phosphatase (38-126) U/L Creatine Kinase (55-170) U/L Troponin I <0.012 (0.000-0.034) ng/mL Total Protein (6.3-8.2) g/dL Albumin (3.5-5.0) g/dL Disposition Clinical Impression: Dizziness Disposition: HOME SELF-CARE Condition: Fair Instructions (If sedation given, give patient instructions): Dizziness (ED) Additional Instructions: Drink plenty of fluids, eat regular meals. Return with any worsening or changin g symptoms and follow-up with your primary care provider. Is patient prescribed a controlled substance at d/c from ED?: No Referrals: Felicita Asencio MD [Primary Care Provider] - 1-2 days Time of Disposition: 18:57
--- NOTE | 2024-10-13 18:26 | CT ---
EXAMINATION TYPE: CT brain wo con CT DLP: 1107.6 mGycm, Automated exposure control for dose reduction was used. DATE OF EXAM: 10/13/2024 6:19 PM COMPARISON: None. CLINICAL INDICATION:Male, 88 years old with history of Neuro deficit, acute, stroke suspected, AMS. TECHNIQUE: Brain: Axial CT images of the brain were obtained with coronal and sagittal reformats created and rev iewed. Contrast used: None. Oral contrast used: None. FINDINGS: Brain: Extra-axial spaces: No abnormal extra-axial fluid collections. Ventricular system: Dilatation in proportion to cerebral atrophy. Cerebral parenchyma: Cerebral atrophy. No acute intraparenchymal hemorrhage or mass effect. The dunne -white junction is well differentiated. Bilateral basal ganglia mineralization. Cerebellum: Unremarkable. Mass effect: No evidence of midline shift. Intracranial vasculature: Atherosclerotic calcifications of the intracranial vessels. Soft tissues: Normal. Calvarium/osseous structures: No depressed skull fracture. Paranasal sinuses and mastoid air cells: Clear Visualized orbits: Bilateral aphakia IMPRESSION: No acute intracranial process. [facility], , 10/13/2024 6:24 PM
[2024-10-13 19:21] VITALS: BP 133/92; PULSE 68; RESP 18
== END 2024-10-13 19:21 | disposition home or self-care (01) ==
LOC: EC 16:41
DX: R42 Dizziness and giddiness (principal); I10 Essential (primary) hypertension; Z79.899 Other long term (current) drug therapy; Z87.891 Personal history of nicotine dependence
CPT/HCPCS: 36415; 70450; 80053; 82550; 84484; 85025; 85610; 85730; 93005; 96360; 96361; 99284

== ENCOUNTER 2025-02-07 15:18 | Emergency (ER) | payer MEDICARE ==
[2025-02-07 15:58] LABS: Basophils % (A) 1 %; Eosinophils # (A) 0.3 k/uL (0-0.7); Eosinophils % (A) 4 %; HCT 38.4 % (39.0-53.0); HGB 12.3 gm/dL (13.0-17.5); Lymphocytes # (A) 1.6 k/uL (1.0-4.8); Lymphocytes % (A) 20 %; MCHC 31.9 g/dL (31.0-37.0); MCV 94.1 fL (80.0-100.0); Mean Platelet Volume 7.4; Monocytes # (A) 0.4 k/uL (0-1.0); Monocytes % (A) 5 %; Neutrophils # (A) 5.4 k/uL (1.3-7.7); Neutrophils % (A) 68 %; Platelet Count 249 k/uL (150-450); RBC 4.08 m/uL (4.30-5.90); RDW 13.5 % (11.5-15.5)
[2025-02-07 16:07] LABS: INR 1.1 (<1.2)
[2025-02-07 16:08] LABS: Prothrombin Time 11.6 sec (10.0-12.5)
[2025-02-07 16:19] LABS: ALT 23 U/L (4-49); AST 30 U/L (17-59); African American GFR (CKD) 62 (>60 ml/min/1.73 sqM); Albumin 4.1 g/dL (3.5-5.0); Alkaline Phosphatase 51 U/L (38-126); Anion Gap 5 mmol/L; Blood Urea Nitrogen 25 mg/dL (9-20); Calcium 9.3 mg/dL (8.4-10.2); Carbon Dioxide 30 mmol/L (22-30); Chloride 101 mmol/L (98-107); Glucose 102 mg/dL (74-99); Lipase 117 U/L (23-300); Magnesium 1.9 mg/dL (1.6-2.3); Non-African American GFR(CKD) 53 (>60 ml/min/1.73 sqM); Potassium 4.9 mmol/L (3.5-5.1); Sodium 136 mmol/L (137-145); Total Bilirubin 0.6 mg/dL (0.2-1.3); Total Protein 7.3 g/dL (6.3-8.2)
--- NOTE | 2025-02-07 16:19 | XR ---
EXAMINATION TYPE: XR chest 2V DATE OF EXAM: 02/07/2025 3:57 PM COMPARISON: Chest radiographs from 01/29/2023 CLINICAL INDICATION: Male, 89 years old with history of Chest Pain; [facility] TECHNIQUE: XR chest 2V Frontal and lateral views of the chest. FINDINGS: Lungs/Pleura: There is no evidence of pleural effusion, focal consolidation, or pneumothorax. Pulmonary vascularity: Unremarkable. Heart/mediastinum: Cardiomediastinal silhouette is unremarkable. Atherosclerotic calcifications are seen in the aorta. Musculoskeletal: No acute osseous pathology. Bilateral shoulder arthroplasty appear intact. IMPRESSION: No acute cardiopulmonary disease/process. [facility], , 02/07/2025 4:17 PM
[2025-02-07 16:27] LABS: NT-Pro-B-Type Natriuretic Pept 353 pg/mL
--- NOTE | 2025-02-07 17:15 | ED ---
Chest Pain HPI - General Chief Complaint: Chest Pain Stated Complaint: chest pain, weakness Time Seen by Provider: 02/07/25 15:26 Source: patient Mode of arrival: ambulatory Limitations: no limitations - History of Present Illness Initial Comments: 89-year-old male who presents the emergency department reporting chest pain. States that it has been going on over the past couple of days. He describes it as a quick flutter sensation in the left side of his chest which then resolves within a couple of seconds. He did try to take some nitro. Unsure if the nitro helped or if the pain just went away on its own. He was reporting to a headache today. Checked his blood pressure and it was significantly elevated and this is what prompted him to come in. He does have history of coronary disease with stents. States that he waited "too long last time" and therefore he wanted to catch this early. Patient presents currently without any symptoms. Denies fevers, chills or cough. No shortness of breath. No pleuritic chest pain. Denies any abdominal pain. No numbness, tingling or weakness in his extremities. No other alleviating, precipitating or modifying factors - Related Data Home Medications Medication Instructions Recorded Confirmed Ascorbic Acid [Vitamin C] 500 mg PO DAILY 04/13/17 02/07/25 Finasteride [Proscar] 5 mg PO DAILY 09/22/18 02/07/25 Ubidecarenone [Co Q-10] 200 mg PO DAILY 09/22/18 02/07/25 Acetaminophen [Tylenol Arthritis] 1,300 mg PO TID PRN 01/29/23 02/07/25 Cholecalciferol [Vitamin D3 (25 50 mcg PO DAILY 01/29/23 02/07/25 Mcg = 1000 Iu)] Glucosam/Anirudh-Msm1/C/Bharath/Bosw 1 tab PO BID 01/29/23 02/07/25 [Glucosamine-Chondroitin Tablet] Rosuvastatin Calcium [Crestor] 40 mg PO DAILY 01/29/23 02/07/25 Multivitamins, Thera [Multivitamin 1 tab PO DAILY 02/07/25 02/07/25 (formulary)] Nitroglycerin Sl Tabs [Nitrostat] 0.4 mg SL Q5M PRN 02/07/25 02/07/25 carvediloL [Coreg] 3.125 mg PO BID 02/07/25 02/07/25 lisinopriL [Zestril] 20 mg PO DAILY 02/07/25 02/07/25 Previous Rx's Medication Instructions Recorded Aspirin 81 mg PO DAILY #30 chew 06/27/19 Allergies Allergy/AdvReac Type Severity Reaction Status Date / Time No Known Allergies Allergy Verified 02/07/25 16:39 Review of Systems ROS Statement: Those systems with pertinent positive or pertinent negative responses have been documented in the HPI. ROS Other: All systems not noted in ROS Statement are negative. Past Medical History Past Medical History: Hyperlipidemia, Hypertension, Myocardial Infarction (ME), Osteoarthritis (OA) Last Myocardial Infarction Date:: 06/25/2019 History of Any Multi-Drug Resistant Organisms: None Reported Past Surgical History: Appendectomy, Heart Catheterization With Stent, Orthopedic Surgery, Tonsillectomy Additional Past Surgical History / Comment(s): left and right shoulder surgery Date of Last Stent Placement:: 06/25/2019 Past Psychological History: No Psychological Hx Reported Smoking Status: Former smoker Past Alcohol Use History: Daily Past Drug Use History: None Reported General Exam Limitations: no limitations General appearance: alert, in no apparent distress Head exam: Present: atraumatic, normocephalic, normal inspection Eye exam: Present: normal appearance, PERRL, EOMI. Absent: scleral icterus, conjunctival injection, periorbital swelling ENT exam: Present: normal exam, mucous membranes moist Neck exam: Present: normal inspection. Absent: tenderness, meningismus, lymphadenopathy Respiratory exam: Present: normal lung sounds bilaterally. Absent: respiratory distress, wheezes, rales, rhonchi, stridor Cardiovascular Exam: Present: regular rate, normal rhythm, normal heart sounds. Absent: systolic murmur, diastolic murmur, rubs, gallop, clicks GI/Abdominal exam: Present: soft, normal bowel sounds. Absent: distended, tenderness, guarding, rebound, rigid Extremities exam: Present: normal inspection, full ROM, normal capillary refill. Absent: tenderness, pedal edema, joint swelling, calf tenderness Back exam: Present: normal inspection Neurological exam: Present: alert, oriented X3, CN II-XII intact Psychiatric exam: Present: normal affect, normal mood Skin exam: Present: warm, dry, intact, normal color. Absent: rash Course Vital Signs 02/07/25 02/07/2525 15:22 15:45 17:25 Temperature 98.4 F 98.1 F Pulse Rate 77 69 59 L Respiratory 16 18 16 Rate Blood Pressure 154/73 136/77 110/67 O2 Sat by Pulse 97 97 95 Oximetry Chest Pain MDM - MDM Was pt. sent in by a medical professional or institution (MACK Lund, MANUFACTURING LEAD, urgent care, hospital, or senior living...) When possible be specific @ -No Did you speak to anyone other than the patient for history (EMS, parent, family, police, friend...)? What history was obtained from this source @ -Spoke with the patient's for history Did you review nursing and triage notes (agree or disagree)? Why? @ -I reviewed and agree with nursing and triage notes Were old charts reviewed (outside hosp., previous admission, EMS record, old EKG, old radiological studies, urgent care reports/EKG's, senior living records)? Report findings @ -Reviewed the catheterization report from 2019 Differential Diagnosis (chest pain, altered mental status, abdominal pain women, abdominal pain men, vaginal bleeding, weakness, fever, dyspnea, syncope, headache, dizziness, GI bleed, back pain, seizure, CVA, palpatations, mental health, musculoskeletal)? @ -Differential Chest Pain: Stable Angina, Unstable Angina, STEMI, NSTEMI Aortic Dissection, Pneumothorax, Musculoskeletal, Esophageal Spasm GERD, Cholecystitis, Pancreatitis, Zoster, this is not meant to be an all-inclusive list. EKG interpreted by me (3pts min.). @ -Yes and demonstrates sinus rhythm with a rate of 60. KS interval 284. QRS 108. QTc of 386. No acute ST segment elevations or depressions X-rays interpreted by me (1pt min.). @ -Yes and demonstrates no acute process CT interpreted by me (1pt min.). @ -None done U/S interpreted by me (1pt. min.). @ -None done What testing was considered but not performed or refused? (CT, X-rays, U/S, labs)? Why? @ -Echo and serial troponins however patient does not want to be admitted What meds were considered but not given or refused? Why? @ -None Did you discuss the management of the patient with other professionals (professionals i.e. MACK Lund, MANUFACTURING LEAD, lab, RT, psych nurse, rn social services, brass plater, teacher, worldwide chief creative officer, case manager specialist)? Give summary @ -No Was smoking cessation discussed for >3mins.? @ -No Was critical care preformed (if so, how long)? @ -No Were there social determinants of health that impacted care today? How? (Jeanne elessness, low income, unemployed, alcoholism, drug addiction, transportation, low edu. Level, literacy, decrease access to med. care, fdc, rehab)? @ -No Was there de-escalation of care discussed even if they declined (Discuss DNR or withdrawal of care, Hospice)? DNR status @ -No What co-morbidities impacted this encounter? (DM, HTN, Smoking, COPD, CAD, Cancer, CVA, ARF, Chemo, Hep., AIDS, mental health diagnosis, sleep apnea, morbid obesity)? @ -Coronary artery disease Was patient admitted / discharged? Hospital course, mention meds given and route, prescriptions, significant lab abnormalities, going to OR and other pertinent info. @ -Upon arrival patient seen and evaluated in bed 3. Thorough history and physical exam was performed. IV access was established. Laboratory studies are conducted. Chest x-ray was performed. Patient remains asymptomatic throughout his stay. I did discuss results with the patient. Recommended overnight observation for his chest pain due to his history however patient refused. Patient wants to go home at this time. He is aware of the risks of leaving. He was agreeable that he would return should he have any return of his symptoms. Patient is to call his primary care doctor in the morning to make an appointment within the next 2 to 4 days. I recommend that he see his wire machine operator as well for evaluation of his symptoms. Return for any new or worsening symptoms. Patient was agreeable to plan he was discharged in stable condition Undiagnosed new problem with uncertain prognosis? @ -No Drug Therapy requiring intensive monitoring for toxicity (Heparin, Nitro, Insulin, Cardizem)? @ -No Were any procedures done? @ -No Diagnosis/symptom? @ -Acute atypical chest pain, history of coronary disease Acute, or Chronic, or Acute on Chronic? @ -Acute Uncomplicated (without systemic symptoms) or Complicated (systemic symptoms)? @ -Complicated Side effects of treatment? @ -No Exacerbation, Progression, or Severe Exacerbation? @ -No Poses a threat to life or bodily function? How? (Chest pain, USA, ME, pneumonia, PE, COPD, DKA, ARF, appy, cholecystitis, CVA, Diverticulitis, Homicidal, Suicidal, threat to staff... and all critical care pts) @ -No Disposition Clinical Impression: Chest pain Disposition: HOME SELF-CARE Condition: Stable Instructions (If sedation given, give patient instructions): Chest Pain (ED) Additional Instructions: Please call your doctor in the morning. Follow-up with them within 2 to 4 days for evaluation. Return to the emergency department should you have any new or worsening symptoms Is patient prescribed a controlled substance at d/c from ED?: No Referrals: Felicita Asencio MD [Primary Care Provider] - 1-2 days Time of Disposition: 17:15
[2025-02-07 17:27] VITALS: BP 110/67; PULSE 59; RESP 16; TEMP 98.1
== END 2025-02-07 17:35 | disposition home or self-care (01) ==
LOC: EC 15:18
DX: R07.9 Chest pain, unspecified (principal); I25.10 Atherosclerotic heart disease of native coronary artery without angina pectoris; Z87.891 Personal history of nicotine dependence
CPT/HCPCS: 36415; 71046; 80053; 83690; 83735; 83880; 84484; 85025; 85610; 85730; 93005; 99285

== ENCOUNTER → 2025-02-28 | Outpatient (CLI) | payer MEDICARE ==
--- NOTE | 2025-02-28 10:13 | MR ---
EXAMINATION TYPE: MR abdomen wo/w con DATE OF EXAM: 02/28/2025 9:37 AM INDICATION: Patient age:Male; 89 years old; Reason for study: N28.1 CYST OF KIDNEY, ACQUIRED; [facility]. COMPARISON: MR abdomen 09/04/2024, CT urogram 08/18/2024, renal ultrasound 10/07/2017 TECHNIQUE: Multiplanar multi-sequence imaging was performed without and with IV contrast. The patie nt was given 7.5 ccs of Gadobutrol intravenously and dynamic imaging was performed. Post IV contrast subtraction images were also submitted for review. FINDINGS: LOWER CHEST: Mild cardiomegaly. Bilateral gynecomastia. Left lower lobe linear atelectasis. ABDOMEN Liver: Unremarkable. Gallbladder and Bile ducts: Unremarkable. Pancreas: Unremarkable. Spleen: Unremarkable. Adrenal glands: Unremarkable. Kidneys: No hydronephrosis. Stable tiny cortical right renal upper pole T2 hyperintense 4 mm cyst. Th ere are 2 posterior mid left renal cortical stable T2 hyperintense cysts measuring 6 mm and 7 mm. Cor tical defect again identified in the posterior right mid kidney cortex without dropout of signal on o ut of phase imaging to suggest angiomyolipoma. Stable anterior left mid kidney cortical 1.0 cm hypode nse heterogenous T2 lesion (series 601, image 41). This is intrinsically T1 hyperintense. There is en hancement identified within this lesion on postcontrast subtraction imaging. There is suggested inter nal enhancing septa. Stomach and Bowel: Small hiatal hernia. Colonic diverticulosis. No evidence for obstruction. Peritoneum: No evidence of pneumoperitoneum, free fluid, or adenopathy. Vasculature: Unremarkable. No aortic aneurysm. Abdominal wall: Unremarkable. Musculoskeletal: The osseous structures appear intact. Multilevel degenerative disc disease. Straight ening of the normal lumbar lordosis. IMPRESSION: 1. Stable size of anterior left mid kidney cortical 1 cm lesion with heterogenous enhancement on sub traction imaging. Raises concern for possible renal cell carcinoma versus other etiologies such as an oncocytoma. 2. 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 [facility], , 02/28/2025 10:11 AM
== END | disposition home or self-care (01) ==
LOC: RADMRIMAIN 08:36
PROVIDERS: ATTEND Urology
DX: N28.1 Cyst of kidney, acquired (principal); N28.89 Other specified disorders of kidney and ureter
CPT/HCPCS: 74183; A9585

== ENCOUNTER → 2025-04-13 | Outpatient (CLI) | payer MEDICARE ==
[2025-04-14 02:47] LABS: ALT 23 U/L (10-49); AST 32 U/L (14-35); Blood Urea Nitrogen 36.2 mg/dL (9.0-27.0); Uric Acid 6.5 mg/dL (3.7-8.7)
== END | disposition home or self-care (01) ==
LOC: LABWHC1 15:37
PROVIDERS: ATTEND Podiatrist
DX: M10.071 Idiopathic gout, right ankle and foot (principal)
CPT/HCPCS: 36415; 82565; 84450; 84460; 84520; 84550

== ENCOUNTER 2025-05-03 21:31 | Emergency (ER) | payer MEDICARE ==
--- NOTE | 2025-05-03 21:52 | ED ---
General Adult HPI - General Source: patient Mode of arrival: ambulatory Limitations: no limitations <Lucas Ac - Last Filed: 05/03/25 21:52> - General Source: patient, RN notes reviewed, old records reviewed <Dajuan Santana - Last Filed: 05/04/25 06:24> - General Chief complaint: Recheck/Abnormal Lab/Rx Stated complaint: High Potassium Time Seen by Provider: 05/03/25 21:51 - History of Present Illness Initial comments: 89-year-old male with history of CKD presenting with chief complaint of hyperkalemia. Patient had his labs checked yesterday and was contacted today instructing him to come to the ER for elevated potassium. (Lucas Ac) Patient is an 89-year-old male who was sent here by PCP for laboratory draw. Apparently had hyperkalemia on blood work done yesterday. Sent here for repeat labs. Has a history of CKD but never had a history of hyperkalemia. Denies any complaints. Denies any changes in urination. States he has been eating peanuts more lately and is not sure if that is contributed to what is been going on. Presents for further evaluation at this time. (Dajuan Santana) - Related Data Home Medications Medication Instructions Recorded Confirmed Ascorbic Acid [Vitamin C] 500 mg PO DAILY 04/13/17 02/07/25 Finasteride [Proscar] 5 mg PO DAILY 09/22/18 02/07/25 Ubidecarenone [Co Q-10] 200 mg PO DAILY 09/22/18 02/07/25 Acetaminophen [Tylenol Arthritis] 1,300 mg PO TID PRN 01/29/23 02/07/25 Cholecalciferol [Vitamin D3 (25 50 mcg PO DAILY 01/29/23 02/07/25 Mcg = 1000 Iu)] Glucosam/Anirudh-Msm1/C/Bharath/Bosw 1 tab PO BID 01/29/23 02/07/25 [Glucosamine-Chondroitin Tablet] Rosuvastatin Calcium [Crestor] 40 mg PO DAILY 01/29/23 02/07/25 Multivitamins, Thera [Multivitamin 1 tab PO DAILY 02/07/25 02/07/25 (formulary)] Nitroglycerin Sl Tabs [Nitrostat] 0.4 mg SL Q5M PRN 02/07/25 02/07/25 carvediloL [Coreg] 3.125 mg PO BID 02/07/25 02/07/25 lisinopriL [Zestril] 20 mg PO DAILY 02/07/25 02/07/25 Previous Rx's Medication Instructions Recorded Aspirin 81 mg PO DAILY #30 chew 06/27/19 Allergies Allergy/AdvReac Type Severity Reaction Status Date / Time No Known Allergies Allergy Verified 05/03/25 21:47 Review of Systems ROS Other: All systems not noted in ROS Statement are negative. <Lucas Ac - Last Filed: 05/03/25 21:52> ROS Other: All systems not noted in ROS Statement are negative. <Dajuan Santana - Last Filed: 05/04/25 06:24> ROS Statement: Those systems with pertinent positive or pertinent negative responses have been documented in the HPI. Review of Systems: CONST: Denies fever EYES: Denies blurry vision ENT: Denies nasal congestion C/V: Denies Chest pain RESP: Denies shortness of breath GI: Denies abdominal pain : Denies dysuria SKIN: Denies rash. MSK: Denies joint pain. NEURO: Denies headache (Dajuan Santana) Past Medical History Past Medical History: Hyperlipidemia, Hypertension, Myocardial Infarction ([place]), Osteoarthritis ([place]) Last Myocardial Infarction Date:: 06/25/2019 History of Any Multi-Drug Resistant Organisms: None Reported Past Surgical History: Appendectomy, Heart Catheterization With Stent, Orthope dic Surgery, Tonsillectomy Additional Past Surgical History / Comment(s): left and right shoulder surgery Date of Last Stent Placement:: 06/25/2019 Past Psychological History: No Psychological Hx Reported Smoking Status: Former smoker Past Alcohol Use History: Daily Past Drug Use History: None Reported <Lucas Ac - Last Filed: 05/03/25 21:52> General Exam Limitations: no limitations <Lcuas Ac - Last Filed: 05/03/25 21:52> <Dajuan Santana - Last Filed: 05/04/25 06:24> - General Exam Comments Initial Comments: Visual Physical Exam Vital signs reviewed General: Well-appearing, nontoxic, no acute distress. Head: Normocephalic, atraumatic Eyes: PERRLA, EOMI ENT: Airway patent Chest: Nonlabored breathing Skin: No visual rash, normal skin tone Neuro: Alert and oriented 3 Musculoskeletal: No gross abnormalities (Lucas Ac) General: Appears in no acute distress. HEAD: Normal with no signs of head trauma. EYES: EOMI ENT: Hearing grossly intact, normal oropharynx. RESPIRATORY: Clear breath sounds bilaterally. No wheezes, rales, or rhonchi. C/V: Regular rate and rhythm. S1 and S2 auscultated, no edema, peripheral pulses 2+ and intact throughout ABD: Abd is soft, nontender, nondistended EXT: Normal range of motion, no obvious deformity SKIN: No rashes or lesions observed on exposed skin. NEURO: Alert and oriented x 4. (Dajuan Santana) Course Vital Signs 05/03/25 05/04/25 05/04/25 21:44 00:33 02:59 Temperature 98.1 F 98.3 F Pulse Rate 70 59 L 72 Respiratory 20 19 19 Rate Blood Pressure 170/82 162/77 171/88 O2 Sat by Pulse 97 97 97 Oximetry 05/04/25 03:54 Temperature Pulse Rate 62 Respiratory 16 Rate Blood Pressure 155/74 O2 Sat by Pulse 97 Oximetry Medical Decision Making <Lucas Ac - Last Filed: 05/03/25 21:52> - Lab Data Result diagrams: 05/03/25 22:26 05/04/25 02:56 - EKG Data -: EKG Interpreted by Me <Dajuan Santana - Last Filed: 05/04/25 06:24> - Medical Decision Making I performed the quick note portion of this visit, electronically signed Lucas Ac PA-C (Lucas Ac) Was pt. sent in by a medical professional or institution (MACK Lund, ENVIRONMENTAL MANAGER, urgent care, hospital, or skilled nursing...) When possible be specific @ -No Did you speak to anyone other than the patient for history (EMS, parent, family, police, friend...)? What history was obtained from this source @ -No Did you review nursing and triage notes (agree or disagree)? Why? @ -I reviewed and agree with nursing and triage notes Were old charts reviewed (outside hosp., previous admission, EMS record, old EKG, old radiological studies, urgent care reports/EKG's, skilled nursing records)? Report findings @ -Reviewed labs from yesterday which does show a hyperkalemia 6.0. Differential Diagnosis (chest pain, altered mental status, abdominal pain women, abdominal pain men, vaginal bleeding, weakness, fever, dyspnea, syncope, headache, dizziness, GI bleed, back pain, seizure, CVA, palpatations, mental health, musculoskeletal)? @ -Possible hyperkalemia, electrolyte abnormality, CKD. This list is not all inclusive. EKG interpreted by me (3pts min.). @ -as above X-rays interpreted by me (1pt min.). @ -None done CT interpreted by me (1pt min.). @ -None done U/S interpreted by me (1pt. min.). @ -None done What testing was considered but not performed or refused? (CT, X-rays, U/S, labs)? Why? @ -None What meds were considered but not given or refused? Why? @ -None Did you discuss the management of the patient with other professionals (professionals i.e. , PA, ENVIRONMENTAL MANAGER, lab, RT, psych nurse, social service assistant, commercial lines sales executive, teacher, special technical operations officer, immigration case manager)? Give summary @ -No Was smoking cessation discussed for >3mins.? @ -No Was critical care preformed (if so, how long)? @ -No Were there social determinants of health that impacted care today? How? (Homelessness, low income, unemployed, alcoholism, drug addiction, transporta tion, low edu. Level, literacy, decrease access to med. care, group home, rehab)? @ -No Was there de-escalation of care discussed even if they declined (Discuss DNR or withdrawal of care, Hospice)? DNR status @ -No What co-morbidities impacted this encounter? (DM, HTN, Smoking, COPD, CAD, Cancer, CVA, ARF, Chemo, Hep., AIDS, mental health diagnosis, sleep apnea, morbid obesity)? @ -None Was patient admitted / discharged? Hospital course, mention meds given and route, prescriptions, significant lab abnormalities, going to OR and other pertinent info. @ -Based on patient's presentation and physical exam, presents for possible hyperkalemia. Has no acute complaints. Will obtain screening EKG and labs. He was in agreement this plan. Screening EKG shows no signs of acute ischemia. Labs initially showed a hemolyzed potassium of 5.3. There were numerous repeat lab draws eventually lab had to come down to [facility] lab due to hemolyzed specimens. Finally when a good specimen was ran, potassium was 4.8. Remainder the labs unremarkable. Vitals are within acceptable limits. I updated the patient. He expressed understanding and will be discharged home at this time. Strict return precautions discussed. Recommend follow-up with PCP in the next 1 to 3 days. I instructed the patient to follow up with their PCP in the next 1-3 days. I explained that the patient should return to the emergency department if they experience any worsening symptoms. Strict return precautions were discussed with the patient. The patient expressed understanding of these instructions. I answered all questions that the patient had. The patient was discharged home in good condition with their prescriptions and follow up information. Undiagnosed new problem with uncertain prognosis? @ -No Drug Therapy requiring intensive monitoring for toxicity (Heparin, Nitro, Insulin, Cardizem)? @ -No Were any procedures done? @ -No Diagnosis/symptom? @ -Encounter for lab draw Acute, or Chronic, or Acute on Chronic? @ -Acute Uncomplicated (without systemic symptoms) or Complicated (systemic symptoms)? @ -Uncomplicated Side effects of treatment? @ -No Exacerbation, Progression, or Severe Exacerbation? @ -No Poses a threat to life or bodily function? How? (Chest pain, [place], [place], pneumonia, PE, COPD, DKA, ARF, appy, cholecystitis, CVA, Diverticulitis, Homicidal, Suicidal, threat to staff... and all critical care pts) @ -Unlikely at this time (Dajuan Santana) - Lab Data Lab Results 05/03/25 05/03/25 05/04/25 Range/Units 22:26 22:26 02:56 WBC 6.79 (4.50-10.00) 10*3/uL RBC 3.90 L (4.40-5.60) 10*6/uL Hgb 12.0 L (13.0-17.0) g/dL Hct 36.5 L (39.6-50.0) % MCV 93.6 D (80.0-97.0) fL MCH 30.8 (27.0-32.0) pg MCHC 32.9 (32.0-37.0) g/dL Plt Count 181 (140-440) 10*3/uL MPV 9.0 L (9.5-12.2) fL Immature Gran % (Auto) 0.3 % Neutrophils % 58.4 % Lymphocytes % 25.6 % Monocytes % 9.9 % Eosinophils % 5.2 % Basophils % 0.6 % Immature Gran # 0.02 (0.00-0.04) 10*3/uL Neutrophils # 3.97 (1.80-7.70) 10*3/uL Lymphocytes # 1.74 (0.90-5.00) 10*3/uL Monocytes # 0.67 (0.20-1.00) 10*3/uL Eosinophils # 0.35 (0.04-0.35) 10*3/uL Basophils # 0.04 (0.00-0.10) 10*3/uL Sodium 138 (137-145) mmol/L Potassium 5.3 H 4.8 (3.5-5.1) mmol/L Chloride 104 (98-107) mmol/L Carbon Dioxide 27 (22-30) mmol/L Anion Gap 7 mmol/L BUN 40 H (9-20) mg/dL Creatinine 1.21 (0.66-1.25) mg/dL Est GFR (CKD-EPI)AfAm 62 (>60 ml/min/1.73 sqM) Est GFR (CKD-EPI)NonAf 53 (>60 ml/min/1.73 sqM) Glucose 108 H (74-99) mg/dL Calcium 9.8 (8.4-10.2) mg/dL Magnesium 2.1 (1.6-2.3) mg/dL Total Bilirubin 0.7 (0.2-1.3) mg/dL AST 34 (17-59) U/L ALT 24 (4-49) U/L Alkaline Phosphatase 36 L (38-126) U/L Total Protein 7.6 (6.3-8.2) g/dL Albumin 4.4 (3.5-5.0) g/dL - EKG Data EKG Comments: 12-lead Electrocardiogram Interpretation Note EKG was reviewed and interpreted by myself. 12-lead ECG performed at 2218 is interpreted by me as revealing normal sinus rhythm at a rate of 64 beats per minute. Left axis deviation. DC interval is 309 ms, QRS durations 113 ms, QTc is 398 ms.. There were no ST or T wave abnormalities to suggest myocardial ischemia or injury. R wave progression across the precordium was satisfactory. By my interpretation this EKG is non-diagnostic for acute ischemia. No changes to suggest acute hyperkalemia. (Dajuan Santana) Disposition <Lucas Ac - Last Filed: 05/03/25 21:52> Is patient prescribed a controlled substance at d/c from ED?: No Time of Disposition: 03:40 <Dajuan Santana - Last Filed: 05/04/25 06:24> Clinical Impression: Routine lab draw Disposition: HOME SELF-CARE Condition: Good Referrals: Felicita Asencio MD [Primary Care Provider] - 1-2 days
[2025-05-03 22:35] LABS: Basophils # (A) 0.04 10*3/uL (0.00-0.10); Basophils % (A) 0.6 %; Eosinophils # (A) 0.35 10*3/uL (0.04-0.35); Eosinophils % (A) 5.2 %; HCT 36.5 % (39.6-50.0); Lymphocytes # (A) 1.74 10*3/uL (0.90-5.00); Lymphocytes % (A) 25.6 %; MCH 30.8 pg (27.0-32.0); MCHC 32.9 g/dL (32.0-37.0); Monocytes # (A) 0.67 10*3/uL (0.20-1.00); Monocytes % (A) 9.9 %; Neutrophils # (A) 3.97 10*3/uL (1.80-7.70); Neutrophils % (A) 58.4 %; Platelet Count 181 10*3/uL (140-440); RDW 14.1 % (11.5-14.5); WBC 6.79 10*3/uL (4.50-10.00)
[2025-05-03 22:38] LABS: MCV 93.6 fL (80.0-97.0)
[2025-05-03 22:52] LABS: ALT 24 U/L (4-49); African American GFR (CKD) 62 (>60 ml/min/1.73 sqM); Albumin 4.4 g/dL (3.5-5.0); Anion Gap 7 mmol/L; Blood Urea Nitrogen 40 mg/dL (9-20); Calcium 9.8 mg/dL (8.4-10.2); Carbon Dioxide 27 mmol/L (22-30); Chloride 104 mmol/L (98-107); Glucose 108 mg/dL (74-99); Non-African American GFR(CKD) 53 (>60 ml/min/1.73 sqM); Sodium 138 mmol/L (137-145); Total Bilirubin 0.7 mg/dL (0.2-1.3); Total Protein 7.6 g/dL (6.3-8.2)
[2025-05-03 23:11] LABS: Potassium 5.3 mmol/L (3.5-5.1)
[2025-05-03 23:12] LABS: AST 34 U/L (17-59); Alkaline Phosphatase 36 U/L (38-126); Magnesium 2.1 mg/dL (1.6-2.3)
[2025-05-04 03:08] VITALS: TEMP 98.3
[2025-05-04] MEDS: SODIUM CHLORIDE 0.9% 1,000 ML IV ONE (03:09)
[2025-05-04 03:55] VITALS: BP 155/74; PULSE 62; RESP 16
== END 2025-05-04 03:54 | disposition home or self-care (01) ==
LOC: EC 21:31
DX: Z00.00 Encounter for general adult medical examination without abnormal findings (principal); Z87.891 Personal history of nicotine dependence
CPT/HCPCS: 36415; 80053; 83735; 84132; 85025; 93005; 96360; 99285

== ENCOUNTER → 2025-05-18 | Outpatient (CLI) | payer MEDICARE ==
[2025-05-18 15:52] LABS: Ferritin 137.0 ng/mL (22.0-322.0); Iron 78.0 UG/DL (65-175); LDH 182.0 U/L (120-246); Total Iron Binding Capacity 342.0 UG/DL (228-460); Total Protein 7.7 g/dL (6.2-8.2); Vitamin B12 1703.0 pg/mL (200.0-944.0)
== END | disposition home or self-care (01) ==
LOC: LABWHC1 09:32
PROVIDERS: ATTEND Internal Medicine
DX: R79.9 Abnormal finding of blood chemistry, unspecified (principal)
CPT/HCPCS: 36415; 82525; 82607; 82728; 83010; 83540; 83550; 83615; 84155; 84165; 85045; 86334; 86335

== ENCOUNTER → 2025-05-25 | Outpatient (CLI) | payer MEDICARE ==
[2025-05-25 15:26] LABS: ALT 25 U/L (10-49); AST 32 U/L (14-35); Uric Acid 6.4 mg/dL (3.7-8.7)
== END | disposition home or self-care (01) ==
LOC: LABWHC1 09:23
PROVIDERS: ATTEND Podiatrist
DX: M10.071 Idiopathic gout, right ankle and foot (principal); M10.072 Idiopathic gout, left ankle and foot
CPT/HCPCS: 36415; 82565; 84450; 84460; 84540; 84550